=== PATIENT | female | born 1945 | race Caucasian/White ===

== ENCOUNTER 2021-05-01 17:59 | Inpatient (IN) | payer OTHER, SELFPAY ==
--- NOTE | 2021-05-01 | ECG_ITS ---
Test Reason : ALTERED MENTAL Blood Pressure : / mmHG Vent. Rate : 083 BPM Atrial Rate : 083 BPM P-R Int : 136 ms QRS Dur : 080 ms QT Int : 398 ms P-R-T Axes : 058 013 016 degrees QTc Int : 467 ms Normal sinus rhythm Nonspecific T wave abnormality Abnormal ECG No previous ECGs available Referred By: Sindi Santos Electronically Signed By:JAMES VERONICA
--- NOTE | ~2021-05-01 | CT_ITS ---
EXAMINATION: CT HEAD WITHOUT CONTRAST CLINICAL INFORMATION: Confusion. Covid positive. COMPARISON: None. TECHNIQUE: Contiguous axial imaging was performed from the skull base to vertex without intravenous contrast. This CT examination was performed using dose optimization techniques as appropriate, variously including the following: * Automated exposure control * Adjustment of mA and/or kV according to patient size (this includes techniques or standardized protocols for targeted exams where dose is matched to indication/reason for exam; i.e. extremities or head) Use of iterative reconstruction technique DLP: 631 mGy-cm. FINDINGS: There is no evidence of acute intracranial hemorrhage or territorial infarction. No abnormal mass effect or midline shift is seen. [place] to white matter differentiation is well preserved. No extra-axial fluid collections are identified. No hydrocephalus. Proportional prominence of the ventricles and sulcal spaces is consistent with moderate volume loss. Patchy periventricular and deep white matter hypoattenuation is consistent with moderate small vessel ischemic changes. The osseous structures and soft tissues are normal. Mild mucoperiosteal thickening of the paranasal sinuses. The mastoid air cells are well aerated. CT/CT head/brain wo con IMPRESSION: No acute intracranial pathology. Chronic volume loss with small vessel ischemic change.
--- NOTE | ~2021-05-01 | XR_ITS ---
EXAMINATION: XR CHEST CLINICAL INFORMATION: Shortness of breath. COMPARISON: Most recent chest radiograph dated 11/29/2018. TECHNIQUE: Frontal view of the chest was obtained. FINDINGS: Patchy bilateral airspace opacities, most prominent within the left upper lobe. Mild interstitial prominence. No pleural effusion or pneumothorax. Stable cardiomediastinal silhouette. XR/XR chest 1V IMPRESSION: Patchy bilateral airspace opacities, most prominent within the left upper lobe. Findings could represent an infectious or inflammatory process, including viral pneumonia.
[2021-05-01 18:38] VITALS: BP 140/57; PULSE 85; TEMP 37.5; O2SAT 96; BMI 24.0
--- NOTE | 2021-05-01 19:26 | ED.GENADULT ---
HPI - General Adult General Chief complaint: General Medical Stated complaint: general malaise Time Seen by Provider: 05/01/21 19:10 History of Present Illness HPI narrative: Patient is 75-year-old female found in a public park urinating on herself. Patient claims she has been coughing having upper respiratory symptoms. Denies any focal weakness. She received her coronavirus vaccine over 2 weeks ago. No vomiting. No focal weakness. Generalized malaise. No chest pain. No abdominal pain. Patient answers simple questions. Feels somewhat weak. Tired. Related Data Allergies Allergy/AdvReac Type Severity Reaction Status Date / Time Penicillins [PENICILLINS] Allergy Unknown UNKNOWN Unverified 04/15/20 15:11 aspirin Allergy Unknown Uncoded 06/30/13 00:00 PCN Allergy Unknown Uncoded 06/30/13 00:00 Review of Systems Review of Systems: No fever no chills no nausea no vomiting Positive weakness All system reviewed Yes all other systems are reviewed and are negative [facility] Social History Social History Alcohol intake: never Patient Tobacco Use Status: Never used Tobacco Advance Directives: No Advance Directives Information Provided: No Physical Exam Vital Signs: Vital Signs: Last Vital Signs Temp 99.9 F 05/01/21 23:37 Pulse 87 05/01/21 23:37 Resp 18 05/01/21 23:37 BP 164/61 H 05/01/21 23:37 Pulse Ox 95 05/01/21 23:37 Body Mass Index 24.0 Appearance: Alert. Oriented X3. No acute distress. Eyes: Pupils equal, round and reactive to light. ENT: Pharynx normal. Neck: Normal inspection. Neck supple. No lymph nodes noted. No crepitus CVS: Normal heart rate and rhythm. Pulses normal. Normal S1 and S2 Respiratory: No respiratory distress. Breath sounds normal. No Wheezing. No rales Abdomen: Soft and nontender. No rigidity. No distention. good BS x4 Skin: Skin warm and dry. Normal skin color. Normal skin turgor. Extremities: No lower extremity edema. Neurovascular intact to all extremities. No Lacerations. No Rash Neuro: Oriented X 3. No motor deficit. No sensory deficit. Moving all extermities. No slurred speech Medical Decision Making MDM Narrative Medical decision making narrative: Patient's COVID test was positive. Positive generalized malaise weakness. X-ray showed a possible pneumonia. Question secondary to COVID versus community-acquired. Antibiotic was started. Given patient is wondering altered earlier. Will admit for further evaluation and monitoring. Case discussed with the hospitalist team. Patient was not hypoxic here in emergency department. Lab Data Result diagrams: 05/01/21 20:24 05/01/21 20:24 Labs: Lab Results 05/01/21 05/01/21 05/01/21 Range/Units 20:04 20:16 20:16 WBC (4.8-10.8) X10*3/uL RBC (4.20-5.50) X10*6/uL Hgb (12.0-16.0) g/dl Hct (37-47) % MCV (80-98) fL MCH (27.0-33.0) pg MCHC (31.0-35.0) g/dl RDW (11.0-16.0) % Plt Count (160-400) X10*3/uL MPV (9.4-12.3) fL Immature Gran % (Auto) (0.0-0.4) % Neut % (Auto) (45-73) % Lymph % (Auto) (20-40) % [place] % (Auto) (2-11) % Eos % (Auto) (0-4) % Baso % (Auto) (0-2) % Lymph # (Auto) (1.2-4.9) X10*3/uL [place] # (Auto) (0.1-1.2) X10*3/uL Eos # (Auto) (0.0-0.4) X10*3/uL Baso # (Auto) (0.0-0.2) X10*3/uL Abs Immat Gran (auto) (0.00-0.03) X10*3/uL Absolute Neuts (auto) (2.0-8.3) X10*3/uL Absolute Nucleated RBC (0.0-0.012) X10*3/uL Nucleated RBC % (auto) (0.0-0.2) /100WBC Sodium (135-145) mmol/L Potassium (3.3-5.1) mmol/L Chloride (96-108) mmol/L Carbon Dioxide (22-29) mmol/L Anion Gap (12-20) BUN (9-16) mg/dL Creatinine (0.5-1.4) mg/dL Estim Creat Clear Calc Estimated GFR POC Glucose 248 H (60-115) mg/dL Random Glucose (60-115) mg/dL Lactic Acid (0.5-2.0) mmol/L Calcium (8.4-10.2) mg/dL TSH (0.32-4.0) uIU/mL Urine Color YELLOW Urine Appearance CLEAR Urine pH 6.0 (5.0-8.0) Ur Specific [place] 1.010 (1.005-1.025) Urine Protein NEG (NEG-TRACE) MG/DL Urine Glucose (UA) >=1000 H (NEG) MG/DL Urine Ketones 40 (NEG) MG/DL Urine Blood 2+ H (NEG) Urine Nitrite NEG (NEG) Ur Leukocyte Esterase NEG (NEG) Urine RBC 5-9 H (0) /HPF Urine WBC 0 (0-4) /HPF Ur Squamous Epith Cells NONE /LPF Urine Bacteria NONE /LPF Urine Mucus TRACE /LPF Coronavirus (PCR) POSITIVE A (Negative) Influenza Type A (PCR) NEGATIVE (Negative) Influenza Type B (PCR) NEGATIVE (Negative) RSV RNA Qual (PCR) NEGATIVE (Negative) 05/01/21 05/01/21 05/01/21 Range/Units 20:23 20:24 20:24 WBC 3.9 L (4.8-10.8) X10*3/uL RBC 4.37 (4.20-5.50) X10*6/uL Hgb 12.5 (12.0-16.0) g/dl Hct 35.3 L (37-47) % MCV 80.8 (80-98) fL MCH 28.6 (27.0-33.0) pg MCHC 35.4 H (31.0-35.0) g/dl RDW 12.3 (11.0-16.0) % Plt Count 178 (160-400) X10*3/uL MPV 9.7 (9.4-12.3) fL Immature Gran % (Auto) 0.3 (0.0-0.4) % Neut % (Auto) 59.3 (45-73) % Lymph % (Auto) 30.4 (20-40) % [place] % (Auto) 9.4 (2-11) % Eos % (Auto) 0.3 (0-4) % Baso % (Auto) 0.3 (0-2) % Lymph # (Auto) 1.2 (1.2-4.9) X10*3/uL [place] # (Auto) 0.4 (0.1-1.2) X10*3/uL Eos # (Auto) 0.0 (0.0-0.4) X10*3/uL Baso # (Auto) 0.0 (0.0-0.2) X10*3/uL Abs Immat Gran (auto) 0.01 (0.00-0.03) X10*3/uL Absolute Neuts (auto) 2.3 (2.0-8.3) X10*3/uL Absolute Nucleated RBC 0.000 (0.0-0.012) X10*3/uL Nucleated RBC % (auto) 0.0 (0.0-0.2) /100WBC Sodium 137 (135-145) mmol/L Potassium 2.9 L (3.3-5.1) mmol/L Chloride 98 (96-108) mmol/L Carbon Dioxide 27 (22-29) mmol/L Anion Gap 15 (12-20) BUN 6 L (9-16) mg/dL Creatinine 0.66 (0.5-1.4) mg/dL Estim Creat Clear Calc 57.6 Estimated GFR > 60 POC Glucose (60-115) mg/dL Random Glucose 257 H (60-115) mg/dL Lactic Acid 1.0 (0.5-2.0) mmol/L Calcium 9.4 (8.4-10.2) mg/dL TSH (0.32-4.0) uIU/mL Urine Color Urine Appearance Urine pH (5.0-8.0) Ur Specific [place] (1.005-1.025) Urine Protein (NEG-TRACE) MG/DL Urine Glucose (UA) (NEG) MG/DL Urine Ketones (NEG) MG/DL Urine Blood (NEG) Urine Nitrite (NEG) Ur Leukocyte Esterase (NEG) Urine RBC (0) /HPF Urine WBC (0-4) /HPF Ur Squamous Epith Cells /LPF Urine Bacteria /LPF Urine Mucus /LPF Coronavirus (PCR) (Negative) Influenza Type A (PCR) (Negative) Influenza Type B (PCR) (Negative) RSV RNA Qual (PCR) (Negative) 05/01/21 Range/Units 20:24 WBC (4.8-10.8) X10*3/uL RBC (4.20-5.50) X10*6/uL Hgb (12.0-16.0) g/dl Hct (37-47) % MCV (80-98) fL MCH (27.0-33.0) pg MCHC (31.0-35.0) g/dl RDW (11.0-16.0) % Plt Count (160-400) X10*3/uL MPV (9.4-12.3) fL Immature Gran % (Auto) (0.0-0.4) % Neut % (Auto) (45-73) % Lymph % (Auto) (20-40) % [place] % (Auto) (2-11) % Eos % (Auto) (0-4) % Baso % (Auto) (0-2) % Lymph # (Auto) (1.2-4.9) X10*3/uL [place] # (Auto) (0.1-1.2) X10*3/uL Eos # (Auto) (0.0-0.4) X10*3/uL Baso # (Auto) (0.0-0.2) X10*3/uL Abs Immat Gran (auto) (0.00-0.03) X10*3/uL Absolute Neuts (auto) (2.0-8.3) X10*3/uL Absolute Nucleated RBC (0.0-0.012) X10*3/uL Nucleated RBC % (auto) (0.0-0.2) /100WBC Sodium (135-145) mmol/L Potassium (3.3-5.1) mmol/L Chloride (96-108) mmol/L Carbon Dioxide (22-29) mmol/L Anion Gap (12-20) BUN (9-16) mg/dL Creatinine (0.5-1.4) mg/dL Estim Creat Clear Calc Estimated GFR POC Glucose (60-115) mg/dL Random Glucose (60-115) mg/dL Lactic Acid (0.5-2.0) mmol/L Calcium (8.4-10.2) mg/dL TSH 0.90 (0.32-4.0) uIU/mL Urine Color Urine Appearance Urine pH (5.0-8.0) Ur Specific [place] (1.005-1.025) Urine Protein (NEG-TRACE) MG/DL Urine Glucose (UA) (NEG) MG/DL Urine Ketones (NEG) MG/DL Urine Blood (NEG) Urine Nitrite (NEG) Ur Leukocyte Esterase (NEG) Urine RBC (0) /HPF Urine WBC (0-4) /HPF Ur Squamous Epith Cells /LPF Urine Bacteria /LPF Urine Mucus /LPF Coronavirus (PCR) (Negative) Influenza Type A (PCR) (Negative) Influenza Type B (PCR) (Negative) RSV RNA Qual (PCR) (Negative) Discharge Plan Discharge Clinical Impression: Pneumonia due to COVID-19 virus Patient Disposition: Admitted As Inpatient
[2021-05-01 20:29] LABS: Glucose, Whole Blood 248 mg/dL (60-115)
[2021-05-01 20:30] LABS: MANUAL DIFF FLAG NO
[2021-05-01 20:32] LABS: Basophils Percent Auto 0.3 % (0-2); Eosinophils Percent Auto 0.3 % (0-4); Hematocrit 35.3 % (37-47); Hemoglobin 12.5 g/dl (12.0-16.0); Imm Gran Abs Auto 0.01 X10*3/uL (0.00-0.03); Imm Gran Pct Auto 0.3 % (0.0-0.4); Lymphocytes Absolute Auto 1.2 X10*3/uL (1.2-4.9); Lymphocytes Percent Auto 30.4 % (20-40); Mean Corpuscular HGB Conc 35.4 g/dl (31.0-35.0); Mean Corpuscular Hemoglobin 28.6 pg (27.0-33.0); Mean Corpuscular Volume 80.8 fL (80-98); Mean Platelet Volume 9.7 fL (9.4-12.3); Monocytes Absolute Auto 0.4 X10*3/uL (0.1-1.2); Monocytes Percent Auto 9.4 % (2-11); Neutrophils Absolute Auto 2.3 X10*3/uL (2.0-8.3); Neutrophils Percent Auto 59.3 % (45-73); Platelet Count 178 X10*3/uL (160-400); Red Blood Count 4.37 X10*6/uL (4.20-5.50); Red Cell Distribution Width 12.3 % (11.0-16.0); White Blood Count 3.9 X10*3/uL (4.8-10.8)
[2021-05-01 20:33] LABS: Appearance Urine CLEAR; Color Urine YELLOW; Glucose Urine UA >=1000 MG/DL (NEG); Leukocyte Esterase Urine NEG (NEG); Nitrite Urine NEG (NEG); UACC Culture Trigger NO; Urine Blood 2+ (NEG); Urine Ketones 40 MG/DL (NEG); Urine Protein NEG (NEG-TRACE)
[2021-05-01 20:40] LABS: Mucus Urine TRACE /LPF; WBC Urine 0 /HPF (0-4)
[2021-05-01 21:02] LABS: Blood Urea Nitrogen 6 mg/dL (9-16); Calcium 9.4 mg/dL (8.4-10.2); Creatinine Clr Calc Pharmacy 57.6; Estimated Glomerular Filt Rate > 60; Glucose Random 257 mg/dL (60-115)
--- NOTE | 2021-05-01 21:12 | PC.NURSE ---
pt alert to name and place. she has difficulty following direction.
[2021-05-01 21:13] LABS: Anion Gap 15 (12-20); Carbon Dioxide 27 mmol/L (22-29); Chloride 98 mmol/L (96-108); Potassium 2.9 mmol/L (3.3-5.1); Sodium 137 mmol/L (135-145)
[2021-05-01 21:34] LABS: Influenza A PCR NEGATIVE (Negative); Influenza B PCR NEGATIVE (Negative); Resp Syncy Virus RNA Qual PCR NEGATIVE (Negative)
[2021-05-01 21:36] LABS: SARS COV2 PCR INHOUSE POSITIVE (Negative)
--- NOTE | 2021-05-01 23:30 | PM.IMHP ---
History of Present Illness Date of Service: 05/01/21 Chief Complaint: Confusion 75F with a past medical history of hypertension, diabetes presented to the hospital in the chief complaint of confusion. At the time of my entry patient is alert and awake. Oriented times 2-3. Per ER physician patient was found to be in the parking lot and brought her to the hospital as she was wandering in the ER. Patient noted to be mildly confused. Exam nonfocal. Patient denies any chest pain palpitations lightheadedness dizziness or shortness of breath. Denies any fever chills cough. Denies any GI or symptoms. Review of all other systems is negative except mentioned above ER course: Per ER team patient COVID-19 came back positive; patient saturating 96% on room air; chest x-ray consistent and opacities-concern for COVID pneumonia; given ceftriaxone azithromycin. Admitted to the hospital for further management PMFSH Pertinent family history: pt unable to provide information. Social History Alcohol intake: never Patient Tobacco Use Status: Never used Tobacco Advance Directives: No Advance Directives Information Provided: No Meds Allergies Allergy/AdvReac Type Severity Reaction Status Date / Time Penicillins [PENICILLINS] Allergy Unknown UNKNOWN Unverified 04/15/20 15:11 aspirin Allergy Unknown Uncoded 06/30/13 00:00 PCN Allergy Unknown Uncoded 06/30/13 00:00 Active Medications: Current Medications Azithromycin (Azithromycin 500 Mg Tablet) 500 mg PO Q24H CORA Ceftriaxone Sodium 1 gm/ (Sodium Chloride) 50 mls @ 100 mls/hr IV ONCE ONE Stop: 05/01/21 23:54 Ceftriaxone Sodium 1 gm/ (Sodium Chloride) 50 mls @ 100 mls/hr IV Q24H CORA Physical Exam Vital Signs and Narrative: Vital Signs: Last Vital Signs Temp 99.5 F 05/01/21 18:38 Pulse 85 05/01/21 18:38 BP 140/57 H 05/01/21 18:38 Pulse Ox 96 05/01/21 18:38 Body Mass Index 24.0 Results Labs CBC and Chem 7: 05/01/21 20:24 05/01/21 20:24 Labs: Laboratory Results - last 24 hr 05/01/21 05/01/21 05/01/21 20:04 20:16 20:16 MCV MCH MCHC RDW Plt Count MPV Immature Gran % (Auto) Neut % (Auto) Lymph % (Auto) [place] % (Auto) Eos % (Auto) Baso % (Auto) Lymph # (Auto) [place] # (Auto) Eos # (Auto) Baso # (Auto) Abs Immat Gran (auto) Absolute Neuts (auto) Absolute Nucleated RBC Nucleated RBC % (auto) Anion Gap Estim Creat Clear Calc Estimated GFR POC Glucose 248 H Random Glucose Lactic Acid Calcium TSH Urine Color YELLOW Urine Appearance CLEAR Urine pH 6.0 Ur Specific [place] 1.010 Urine Protein NEG Urine Glucose (UA) >=1000 H Urine Ketones 40 Urine Blood 2+ H Urine Nitrite NEG Ur Leukocyte Esterase NEG Urine RBC 5-9 H Urine WBC 0 Ur Squamous Epith Cells NONE Urine Bacteria NONE Urine Mucus TRACE Coronavirus (PCR) POSITIVE A Influenza Type A (PCR) NEGATIVE Influenza Type B (PCR) NEGATIVE RSV RNA Qual (PCR) NEGATIVE 05/01/21 05/01/21 05/01/21 20:23 20:24 20:24 MCV 80.8 MCH 28.6 MCHC 35.4 H RDW 12.3 Plt Count 178 MPV 9.7 Immature Gran % (Auto) 0.3 Neut % (Auto) 59.3 Lymph % (Auto) 30.4 [place] % (Auto) 9.4 Eos % (Auto) 0.3 Baso % (Auto) 0.3 Lymph # (Auto) 1.2 [place] # (Auto) 0.4 Eos # (Auto) 0.0 Baso # (Auto) 0.0 Abs Immat Gran (auto) 0.01 Absolute Neuts (auto) 2.3 Absolute Nucleated RBC 0.000 Nucleated RBC % (auto) 0.0 Anion Gap 15 Estim Creat Clear Calc 57.6 Estimated GFR > 60 POC Glucose Random Glucose 257 H Lactic Acid 1.0 Calcium 9.4 TSH Urine Color Urine Appearance Urine pH Ur Specific [place] Urine Protein Urine Glucose (UA) Urine Ketones Urine Blood Urine Nitrite Ur Leukocyte Esterase Urine RBC Urine WBC Ur Squamous Epith Cells Urine Bacteria Urine Mucus Coronavirus (PCR) Influenza Type A (PCR) Influenza Type B (PCR) RSV RNA Qual (PCR) 05/01/21 20:24 MCV MCH MCHC RDW Plt Count MPV Immature Gran % (Auto) Neut % (Auto) Lymph % (Auto) [place] % (Auto) Eos % (Auto) Baso % (Auto) Lymph # (Auto) [place] # (Auto) Eos # (Auto) Baso # (Auto) Abs Immat Gran (auto) Absolute Neuts (auto) Absolute Nucleated RBC Nucleated RBC % (auto) Anion Gap Estim Creat Clear Calc Estimated GFR POC Glucose Random Glucose Lactic Acid Calcium TSH 0.90 Urine Color Urine Appearance Urine pH Ur Specific [place] Urine Protein Urine Glucose (UA) Urine Ketones Urine Blood Urine Nitrite Ur Leukocyte Esterase Urine RBC Urine WBC Ur Squamous Epith Cells Urine Bacteria Urine Mucus Coronavirus (PCR) Influenza Type A (PCR) Influenza Type B (PCR) RSV RNA Qual (PCR) Imaging Radiologist's Impressions: Impressions Chest X-Ray 05/01/21 19:11 IMPRESSION: Patchy bilateral airspace opacities, most prominent within the left upper lobe. Findings could represent an infectious or inflammatory process, including viral pneumonia. Assessment and Plan (1) Pneumonia due to COVID-19 virus: Status: Acute (2) Confusion: Status: Acute 75-year-old female with a past medical history of hypertension, diabetes presented to the hospital with a chief complaint of confusion. Noted to have COVID-19 pneumonia. Confusion: Likely toxic metabolic encephalopathy. Exam nonfocal. CT head pending. Fall precautions. Nursing swallow screen. Supportive care. COVID-19 pneumonia: Patient currently saturating 96% on room air. Supplemental oxygen p.r.n.. Continue ceftriaxone and azithromycin. Id consult for further recommendations Diabetes: Insulin sliding scale.sent Hba1c; Hypertension: Amlodipine 2.5 mg. DVT prophylaxis: Lovenox Code status: Full code-presumed. Unable to reach the patient's family social care proxy. Will defer to the a.m. team to confirm the code status in the morning. Also to confirm the patient's home medications with the PCP tomorrow. Quality Stroke Does the patient have a stroke diagnosis?: No VTE Prior VTE?: No VTE Risk Level:: Medical - moderate - high VTE Device Contraindication: Treatment Not Indicated VTE Drug Contraindication: N/A - Med Ordered
[2021-05-01 23:37] VITALS: BP 164/61; PULSE 87; RESP 18; TEMP 37.7; O2SAT 95
--- NOTE | 2021-05-01 23:39 | PC.NURSE ---
pt mildly confused, pt was oob sitting in a chair putting her sneakers on and was thinking she was leaving the hospital. pt redirecte to bed weakness noted.
[2021-05-01] MEDS: cefTRIAXone sodium 1 GM in 0.9 % Sodium Chloride 50 ML IV (23:52)
[2021-05-01] MEDS: Azithromycin 500 MG TABLET PO (23:52)
--- NOTE | 2021-05-01 23:54 | PC.NURSE ---
pt takes her medications well, asking for soup, pt states she has not been eating, sandwhich given. and beverage. hgob elevated.
[2021-05-02] VITALS (8 sets, daily range): BP systolic 132–168; BP diastolic 55–75; PULSE 67–91; RESP 17–20; TEMP 36.1–37; O2SAT 94–97; BMI 23.2
--- NOTE | 2021-05-02 01:02 | PC.NURSE ---
pt moved to the covid area of the ed, room 3. report given to venus black.
--- NOTE | 2021-05-02 01:55 | PC.NURSE ---
Pt noted to be getting OOB, stated she needed to go to the bathroom, in fact had already had large BM on stretcher. Sheets changed, bed cleaned. Pt w/ copious amount of stool on legs and perineum, cleaned and new gown provided. Pt stated I need to urinate too , this RN stated we could go across the [place] to the bathroom, pt then proceeded to urinate on floor where she was standing. Pt back in bed, attached to monitor, lights dimmed. Educated pt that in the future we can escort her to the bathroom when she needs to go, unclear if verbalizing understanding.
--- NOTE | 2021-05-02 06:27 | PC.NURSE ---
patient incontinent of urine, one assist to bathroom. patient changed into [facility]
[2021-05-02 06:39] LABS: MANUAL DIFF FLAG NO
[2021-05-02 06:55] LABS: Basophils Percent Auto 0.2 % (0-2); Eosinophils Percent Auto 0.2 % (0-4); Hematocrit 38.6 % (37-47); Hemoglobin 13.4 g/dl (12.0-16.0); Hemoglobin A1c % > 14.0 %; Imm Gran Abs Auto 0.02 X10*3/uL (0.00-0.03); Imm Gran Pct Auto 0.4 % (0.0-0.4); Lymphocytes Absolute Auto 1.3 X10*3/uL (1.2-4.9); Lymphocytes Percent Auto 23.8 % (20-40); Mean Corpuscular HGB Conc 34.7 g/dl (31.0-35.0); Mean Corpuscular Hemoglobin 28.2 pg (27.0-33.0); Mean Corpuscular Volume 81.3 fL (80-98); Monocytes Absolute Auto 0.4 X10*3/uL (0.1-1.2); Monocytes Percent Auto 7.7 % (2-11); Neutrophils Absolute Auto 3.6 X10*3/uL (2.0-8.3); Neutrophils Percent Auto 67.7 % (45-73); Platelet Count 202 X10*3/uL (160-400); Red Blood Count 4.75 X10*6/uL (4.20-5.50); Red Cell Distribution Width 12.2 % (11.0-16.0); White Blood Count 5.3 X10*3/uL (4.8-10.8)
[2021-05-02 06:57] LABS: Magnesium 1.7 mg/dL (1.6-2.6)
[2021-05-02 07:02] LABS: Anion Gap 18 (12-20); Blood Urea Nitrogen 7 mg/dL (9-16); Calcium 9.1 mg/dL (8.4-10.2); Carbon Dioxide 25 mmol/L (22-29); Chloride 98 mmol/L (96-108); Creatinine Clr Calc Pharmacy 50.7; Estimated Glomerular Filt Rate > 60; Glucose Random 292 mg/dL (60-115); Potassium 2.6 mmol/L (3.3-5.1); Sodium 138 mmol/L (135-145)
--- NOTE | 2021-05-02 07:55 | PC.NURSE ---
report to kinza on c
[2021-05-02 07:57] LABS: Glucose, Whole Blood 258 mg/dL (60-115)
[2021-05-02 09:01] LABS: Glucose, Whole Blood 343 mg/dL (60-115)
[2021-05-02] MEDS: amLODIPine Besylate 2.5 MG TABLET PO (09:12)
[2021-05-02] MEDS: 0.9 % Sodium Chloride Flush 3 ML SYRINGE IVFLUSH ×3 (09:13→21:18)
[2021-05-02] MEDS: Potassium Chloride Packet 20 MEQ PACKET 40 MEQ PO ×2 (09:13→21:16)
[2021-05-02] MEDS: Insulin Lispro 100 UNIT/ML 3 ML VIAL SUBCUT ×4 (09:13→21:17)
--- NOTE | 2021-05-02 09:17 | MHC.CM.PN ---
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 She has new [facility] insurance. She lives alone. She uses a cane or walker. She is independent with sponge bath. DP home with services from [facility] via [facility] transport. She does not have a HCP. Pt was educated on HCP. She declined the offer to document a HCP. She has family in the area. She does not see them frequently. She receives assistance from people from her advent. CM will follow to assess for a change in discharge needs.
[2021-05-02 11:24] LABS: Glucose, Whole Blood 260 mg/dL (60-115)
[2021-05-02] MEDS: dexAMETHasone 6 MG TABLET PO (12:15)
[2021-05-02 16:23] LABS: Glucose, Whole Blood 253 mg/dL (60-115)
--- NOTE | 2021-05-02 18:45 | HO.PM.IMPN ---
Subjective Subjective Date of Service: 05/02/21 Interval History: late entry note from 05/02 Seen in f/u for covid, confusion. She is a bit confused but assymptomatic from covid Review of Systems confused no sob Physical Exam Vital Signs: Vital Signs: Last Vital Signs Selected Entries 05/01/21 18:38 Temperature 99.5 F Pulse Rate 85 Blood Pressure 140/57 H Pulse Oximetry 96 Oxygen Delivery Me thod Room Air Body Mass Index 23.2 General: AO X1, no acute distressResp: CTA bilateral CVS: S1,S2,RRR GI: +BS, NT, no distention Skin: No rash Neuro: motor grossly intact Psych: appropriate affect Objective Data Active Medications Acetaminophen (Acetaminophen 325 Mg Tablet) 650 mg PO Q6H PRN PRN Reason: Pain, Mild (Pain Scale 1-3) Last Admin: 05/03/21 14:00 Dose: 650 mg Documented by: SUMA Amlodipine Besylate (Amlodipine Besylate 5 Mg Tablet) 5 mg PO DAILY [facility]; Protocol Azithromycin (Azithromycin 500 Mg Tablet) 500 mg PO Q24H [facility] Last Admin: 05/02/21 21:16 Dose: 500 mg Documented by: ZACHARY Dexamethasone (Dexamethasone 6 Mg Tablet) 6 mg PO DAILY [facility] Last Admin: 05/03/21 08:03 Dose: 6 mg Documented by: SUMA Dextrose (Dextrose 50 % 25 Gm/50 Ml Vial) 25 gm IVPUSH Q15M PRN; Protocol PRN Reason: per Hypoglycemia Standing Ord. Enoxaparin Sodium (Enoxaparin Sodium 40 Mg/0.4 Ml Syringe) 40 mg SUBCUT Q24H [facility] Last Admin: 05/02/21 22:30 Dose: 40 mg Documented by: ZACHARY Famotidine (Famotidine 20 Mg Tablet) 20 mg PO BID [facility] Glucose (Glucose Gel 15 Gm Gel..Gram.) 15 gm PO Q15M PRN; Protocol PRN Reason: per Hypoglycemia Standing Ord. Influenza Virus Vaccine (Flu Vacc [id number](6mos Up)/Pf 0.5 Ml Syringe) 0.5 ml IM .ONCE ONE Stop: 05/03/21 18:42 Insulin Human Lispro (Insulin Lispro 100 Unit/Ml 3 Ml Vial) 0 unit SUBCUT QIDACHS [facility]; Protocol Last Admin: 05/03/21 11:46 Dose: 12 unit Documented by: SUMA Melatonin (Melatonin 3 Mg Tablet) 6 mg PO BEDTIME PRN PRN Reason: Insomnia Senna (Sennosides 8.6 Mg Tablet) 17.2 mg PO BEDTIME PRN PRN Reason: Constipation Sodium Chloride (0.9 % Sodium Chloride Flush 3 Ml Syringe) 3 ml IVFLUSH QSHIFT CORA Last Admin: 05/03/21 08:03 Dose: 3 ml Documented by: SUMA Labs CBC & Chem 7: 05/02/21 06:27 05/03/21 09:57 Labs: Laboratory Results - last 24 hr 05/02/21 05/02/21 05/02/21 16:19 20:04 21:09 Anion Gap Estim Creat Clear Calc Estimated GFR POC Glucose 253 H 320 H 307 H Random Glucose Calcium Magnesium Procalcitonin 05/03/21 05/03/21 05/03/21 07:06 09:57 09:57 Anion Gap 15 Estim Creat Clear Calc 47.8 Estimated GFR > 60 POC Glucose 254 H Random Glucose 384 H* Calcium 10.0 D Magnesium 1.9 Procalcitonin 0.08 05/03/21 11:05 Anion Gap Estim Creat Clear Calc Estimated GFR POC Glucose 374 H* Random Glucose Calcium Magnesium Procalcitonin Microbiology Microbiology Results: Microbiology 05/01/21 21:04 Blood Culture - Preliminary Blood - Venous No growth after 24 hours. 05/01/21 20:24 Blood Culture - Preliminary Blood - Venous No growth after 24 hours. Assessment and Plan (1) Pneumonia due to COVID-19 virus: Status: Acute (2) Confusion: Status: Acute Assessment and Plan: 75-year-old female with a past medical history of hypertension, diabetes presented to the hospital with a chief complaint of confusion.? Noted to have COVID-19 pneumonia. Confusion:? Probably has underlying cognitive impairment COVID-19 pneumonia:? assymptimatic, give Dexamatheasone Diabetes:? Insulin sliding scale.sent Hba1c; Hypertension:? Amlodipine 2.5 mg. late entry note from 05/02 Quality Stroke Does the patient have a stroke diagnosis?: No VTE Prior VTE?: No VTE Risk Level:: Medical - moderate - high VTE Device Contraindication: Treatment Not Indicated VTE Drug Contraindication: N/A - Med Ordered
[2021-05-02 20:09] LABS: Glucose, Whole Blood 320 mg/dL (60-115)
[2021-05-02 21:13] LABS: Glucose, Whole Blood 307 mg/dL (60-115)
[2021-05-02] MEDS: Azithromycin 500 MG TABLET PO (21:16)
[2021-05-02] MEDS: Enoxaparin Sodium 40 MG/0.4 ML SYRINGE SUBCUT (22:30)
[2021-05-03] VITALS (7 sets, daily range): BP systolic 106–175; BP diastolic 51–76; PULSE 61–80; RESP 18–20; TEMP 36.1–36.6; O2SAT 96–98
[2021-05-03 07:17] LABS: Glucose, Whole Blood 254 mg/dL (60-115)
--- NOTE | 2021-05-03 07:29 | PC.NURSE ---
21:00- Pt presented as lethargic, struggled to open eyes on command with more difficulty opening left eye. Possible facial right side droop. Would not smile when asked. Weakness in upper extremities. Able to sip water without aspiration. Vital signs stable. Hospitalist Dr Branham assessed patient. Eventually less lethargic upon assessment and able to confirm and name but not place or situation or time. Pt able to smile and fully open eyes on command pupils PERRLA. Able to swallow PO meds in apple sauce. Will continue to monitor and report.
[2021-05-03] MEDS: Insulin Lispro 100 UNIT/ML 3 ML VIAL SUBCUT ×5 (08:02→21:13)
[2021-05-03] MEDS: amLODIPine Besylate 2.5 MG TABLET PO (08:03)
[2021-05-03] MEDS: dexAMETHasone 6 MG TABLET PO (08:03)
[2021-05-03] MEDS: 0.9 % Sodium Chloride Flush 3 ML SYRINGE IVFLUSH ×3 (08:03→21:15)
[2021-05-03] MEDS: Potassium Chloride Packet 20 MEQ PACKET 40 MEQ PO (09:12)
[2021-05-03 10:49] LABS: Anion Gap 15 (12-20); Blood Urea Nitrogen 19 mg/dL (9-16); Carbon Dioxide 26 mmol/L (22-29); Chloride 103 mmol/L (96-108); Creatinine Clr Calc Pharmacy 47.8; Estimated Glomerular Filt Rate > 60; Glucose Random 384 mg/dL (60-115); Magnesium 1.9 mg/dL (1.6-2.6); Potassium 3.4 mmol/L (3.3-5.1); Sodium 141 mmol/L (135-145)
[2021-05-03 11:10] LABS: Glucose, Whole Blood 374 mg/dL (60-115)
[2021-05-03 11:33] LABS: Procalcitonin 0.08 ng/mL
--- NOTE | 2021-05-03 13:31 | P.PNIM_ITS ---
Subjective Subjective Date of Service: 05/03/21 Interval History: confusion, hypokalemia , covid infection Review of Systems Patient is still somewhat confused but knows her name and knows that she is in the hospital Could able to answer few simple questions-denies any chest pain or shortness of breath has some dry cough further lu no new event overnight. Physical Exam Vital Signs: Vital Signs: Last Vital Signs Temp 97.3 F 05/03/21 11:14 Pulse 72 05/03/21 11:14 Resp 18 05/03/21 11:14 BP 155/69 H 05/03/21 11:14 Pulse Ox 98 05/03/21 11:14 Body Mass Index 23.2 Physical exam: Appearance: Aox2, not in distress.? Eyes: Pupils equal, round and reactive to light.? Sclera nonicteric.? ENT: Moist mucous membranes. cvs: rrr, [id number] , no murmur res: clear to auscultation ,no rhonchii or wheezing abd: no rebound or guarding ,nt, bs present. ext pulses present , no cyanosis . neuro: axo2 , moves all extermities . Objective Data Active Medications Acetaminophen (Acetaminophen 325 Mg Tablet) 650 mg PO Q6H PRN PRN Reason: Pain, Mild (Pain Scale 1-3) Amlodipine Besylate (Amlodipine Besylate 5 Mg Tablet) 5 mg PO DAILY [facility]; Protocol Azithromycin (Azithromycin 500 Mg Tablet) 500 mg PO Q24H [facility] Last Admin: 05/02/21 21:16 Dose: 500 mg Documented by: ALYSELN Dexamethasone (Dexamethasone 6 Mg Tablet) 6 mg PO DAILY [facility] Last Admin: 05/03/21 08:03 Dose: 6 mg Documented by: BROB Dextrose (Dextrose 50 % 25 Gm/50 Ml Vial) 25 gm IVPUSH Q15M PRN; Protocol PRN Reason: per Hypoglycemia Standing Ord. Enoxaparin Sodium (Enoxaparin Sodium 40 Mg/0.4 Ml Syringe) 40 mg SUBCUT Q24H [facility] Last Admin: 05/02/21 22:30 Dose: 40 mg Documented by: ALYSELN Glucose (Glucose Gel 15 Gm Gel..Gram.) 15 gm PO Q15M PRN; Protocol PRN Reason: per Hypoglycemia Standing Ord. Influenza Virus Vaccine (Flu Vacc [id number](6mos Up)/Pf 0.5 Ml Syringe) 0.5 ml IM .ONCE ONE Stop: 05/03/21 18:42 Insulin Human Lispro (Insulin Lispro 100 Unit/Ml 3 Ml Vial) 0 unit SUBCUT QIDACHS [facility]; Protocol Last Admin: 05/03/21 11:46 Dose: 12 unit Documented by: SUMA Melatonin (Melatonin 3 Mg Tablet) 6 mg PO BEDTIME PRN PRN Reason: Insomnia Senna (Sennosides 8.6 Mg Tablet) 17.2 mg PO BEDTIME PRN PRN Reason: Constipation Sodium Chloride (0.9 % Sodium Chloride Flush 3 Ml Syringe) 3 ml IVFLUSH [facility] Last Admin: 05/03/21 08:03 Dose: 3 ml Documented by: SUMA Labs CBC & Chem 7: 05/02/21 06:27 05/03/21 09:57 Labs: Laboratory Results - last 24 hr 05/02/21 05/02/21 05/02/21 16:19 20:04 21:09 Anion Gap Estim Creat Clear Calc Estimated GFR POC Glucose 253 H 320 H 307 H Random Glucose Calcium Magnesium Procalcitonin 05/03/21 05/03/21 05/03/21 07:06 09:57 09:57 Anion Gap 15 Estim Creat Clear Calc 47.8 Estimated GFR > 60 POC Glucose 254 H Random Glucose 384 H* Calcium 10.0 D Magnesium 1.9 Procalcitonin 0.08 05/03/21 11:05 Anion Gap Estim Creat Clear Calc Estimated GFR POC Glucose 374 H* Random Glucose Calcium Magnesium Procalcitonin Microbiology Microbiology Results: Microbiology 05/01/21 21:04 Blood Culture - Preliminary Blood - Venous No growth after 24 hours. 05/01/21 20:24 Blood Culture - Preliminary Blood - Venous No growth after 24 hours. Assessment and Plan (1) Confusion: Status: Acute (2) Pneumonia due to COVID-19 virus: Status: Acute (3) Hypokalemia: Status: Acute Assessment and Plan: ? ? 75-year-old female with a past medical history of hypertension, diabetes presented to the hospital with a chief complaint of confusion.? Noted to have COVID-19 pneumonia. 1. Likely toxic metabolic encephalopathy multifactorial hypokalemia , poor oral intake ,?unclear baseline : seems slightly better.? Exam nonfocal.? CT head neg.? Fall precautions will check with family also about the basleine. Hypokalemia repleted and resolved, given another dose of potassium this morning. 2. probable COVID-19 pneumonia:? Patient currently saturating 96% on room air.? Supplemental oxygen p.r.n.. procalcitonin low dc antibiotics - ceftriaxone and azithromycin. Id consult for further recommendations 3.Diabetes:? Uncontrolled Check Hba1c; Fingersticks are uncontrolled in 200-300 range, adjusted sliding scale coverage. 4.Hypertension:? Amlodipine 2.5 mg. Patient was not taking her home medications from long time as per my review with Pharmacy, does not seems to be managing well at home, lives the lives alone, unclear baseline mental status ?memory issues PT evaluation added. DVT prophylaxis:? Lovenox Quality Stroke Does the patient have a stroke diagnosis?: No VTE Prior VTE?: No VTE Risk Level:: Medical - moderate - high VTE Device Contraindication: Treatment Not Indicated VTE Drug Contraindication: N/A - Med Ordered
[2021-05-03] MEDS: Acetaminophen 325 MG TABLET 650 MG PO (14:00)
--- NOTE | 2021-05-03 14:03 | MHC.CDI.CONC ---
CDI Concurrent Query Documentation Clarification: PHYSICIAN'S DOCUMENTATION REQUEST Date of Query: 05/03/21 1405 Patient Name: Rossy Tate Admit Date: 05/01/21 Dear Doctor, A review of the medical record indicates additional documentation may be needed. Please review below and update the documentation accordingly. Clinical Indicators: The following diagnoses or signs and symptoms were noted in the patient record: Risk Factors/Clinical Indicators/Treatments Potassium 2.9 Treated with Klor-Con Based on the above, could you clarify in the Progress Notes the appropriate diagnosis, if significant, that supports the above abnormalities and additional evaluation, monitoring, and/or treatment rendered: Hypokalemia No Hypokalemia Other (please specify) Unable to determine Use of terms such as suspected, likely, concern for, or probable (associated with a specific diagnosis that is being evaluated, monitored, or treated as if it exists) are acceptable and can be coded in the inpatient setting, when documented at the time of discharge. Thank you, Yanet López RN Extension: [phone] Please use your independent medical judgment in providing your response. THIS QUERY IS PART OF THE PERMANENT MEDICAL RECORD Provider Response: Other Other Diagnosis: hypokalemia
--- NOTE | 2021-05-03 14:24 | MHC.CM.PN ---
FEMALE 75 DX COVID. Met with patient in her room. Provided information RE: HCP. She chose her son Magnolia Medrano [phone]. The HCP was documented and scanned into EMR. Thru an sports therapist the Pts contact Maryanne Mckeon was called. Maryanne reported that she checks in on the patient weekly. She reports that the patient has 4 children.The patient is forgetful at times. Attempted to reach the patients son Magnolia, KRISTINA left. CM will follow.
[2021-05-03] MEDS: Famotidine 20 MG TABLET PO ×2 (15:45→21:08)
[2021-05-03 16:12] LABS: Glucose, Whole Blood 301 mg/dL (60-115)
[2021-05-03 20:03] LABS: Glucose, Whole Blood 442 mg/dL (60-115)
[2021-05-03] MEDS: Azithromycin 500 MG TABLET PO (21:08)
[2021-05-03] MEDS: Enoxaparin Sodium 40 MG/0.4 ML SYRINGE SUBCUT (21:09)
--- NOTE | 2021-05-03 21:29 | P.CNID_ITS ---
History of Present Illness Data of Consult Service Date: 05/02/21 Requesting physician: Shane Bai Primary Care Provider: Desmond Campbell MD [facility] Reason for consult: COVID She presents to hospital with shortness of breath for a week He has no fever or chills. No one else is ill She is COVID positive Review of Systems Review of Systems: Yes all other systems are reviewed and are negative PMFSH Family History Family history: reviewed and not pertinent Social History Social History Household Members: Other Household Members Other:: alone Housing: Apartment Do you presently have visiting nurse or other home services: No Alcohol intake: never Patient Tobacco Use Status: Never used Tobacco Use of substances other than those prescribed or required for medical reasons: No Currently Displaying Signs/Symptoms of Drug Intoxication Withdrawal: No Have you been hit, kicked, punched, or otherwise hurt by someone within the past year? If so, by whom?: No Do you feel safe in your current relationship?: Yes Is there a partner from a previous relationship who is making you feel unsafe now?: No Are you made to feel afraid or neglected: No Advance Directives: No Advance Directives Information Provided: No Do you have thoughts of harming others: None Do you have a plan to hurt others: No Plan Recently lost weight without trying: Unsure How much weight loss: Unsure Eating poorly because of decreased appetite: No Nutrition screen score: 4 Nutrition Risks: No Nutritional Risk Patient : No : No Poor oral hygiene: No service: No Current occupational status: unemployed Meds Allergies Allergy/AdvReac Type Severity Reaction Status Date / Time Penicillins [PENICILLINS] Allergy Unknown UNKNOWN Unverified 04/15/20 15:11 aspirin Allergy Unknown Uncoded 06/30/13 00:00 PCN Allergy Unknown Uncoded 06/30/13 00:00 Active Medications: Current Medications Acetaminophen (Acetaminophen 325 Mg Tablet) 650 mg PO Q6H PRN PRN Reason: Pain, Mild (Pain Scale 1-3) Last Admin: 05/03/21 14:00 Dose: 650 mg Documented by: Amlodipine Besylate (Amlodipine Besylate 5 Mg Tablet) 5 mg PO DAILY [facility]; Protocol Azithromycin (Azithromycin 500 Mg Tablet) 500 mg PO Q24H [facility] Last Admin: 05/03/21 21:08 Dose: 500 mg Documented by: Dexamethasone (Dexamethasone 6 Mg Tablet) 6 mg PO DAILY [facility] Last Admin: 05/03/21 08:03 Dose: 6 mg Documented by: Dextrose (Dextrose 50 % 25 Gm/50 Ml Vial) 25 gm IVPUSH Q15M PRN; Protocol PRN Reason: per Hypoglycemia Standing Ord. Enoxaparin Sodium (Enoxaparin Sodium 40 Mg/0.4 Ml Syringe) 40 mg SUBCUT Q24H [facility] Last Admin: 05/03/21 21:09 Dose: 40 mg Documented by: Famotidine (Famotidine 20 Mg Tablet) 20 mg PO BID [facility] Last Admin: 05/03/21 21:08 Dose: 20 mg Documented by: Glucose (Glucose Gel 15 Gm Gel..Gram.) 15 gm PO Q15M PRN; Protocol PRN Reason: per Hypoglycemia Standing Ord. Insulin Human Lispro (Insulin Lispro 100 Unit/Ml 3 Ml Vial) 0 unit SUBCUT QIDACHS [facility]; Protocol Last Admin: 05/03/21 21:08 Dose: 12 unit Documented by: Melatonin (Melatonin 3 Mg Tablet) 6 mg PO BEDTIME PRN PRN Reason: Insomnia Senna (Sennosides 8.6 Mg Tablet) 17.2 mg PO BEDTIME PRN PRN Reason: Constipation Sodium Chloride (0.9 % Sodium Chloride Flush 3 Ml Syringe) 3 ml IVFLUSH QSHIFT [facility] Last Admin: 05/03/21 21:15 Dose: 3 ml Documented by: Physical Exam Vital Signs: Vital Signs: Last Vital Signs Temp 97.1 F 05/03/21 19:14 Pulse 80 05/03/21 19:14 Resp 20 05/03/21 19:14 BP 106/51 L 05/03/21 19:14 Pulse Ox 96 05/03/21 19:14 Body Mass Index 23.2 Const: General: cooperative HENMT: Head: Yes normal to inspection Mouth: Normal oral and palatal mucosa present Eyes: General: appearance normal, both eyes and all related structures Resp: Effort & Inspection: normal respiratory effort Cardio: Rate: regular rate Rhythm: regular rhythm GI: Inspection: Yes normal to inspection Extrem: General: Yes normal to inspection Results Labs CBC & Chem 7: 05/02/21 06:27 05/03/21 09:57 Labs: BMP 05/03/21 09:57 Sodium 141 Potassium 3.4 D Chloride 103 Carbon Dioxide 26 BUN 19 H D Creatinine 0.73 Calcium 10.0 D Microbiology Microbiology Results: Microbiology 05/01/21 21:04 Blood - Venous Blood Culture - Preliminary No growth after 24 hours. 05/01/21 20:24 Blood - Venous Blood Culture - Preliminary No growth after 24 hours. Assessment and Plan (1) Pneumonia due to COVID-19 virus: Status: Acute She has had symptoms for last week She has no productive phlegm Suggest May use Dexamethasone Would hold Remdesivir since on room air
[2021-05-03] MEDS: Melatonin 3 MG TABLET 6 MG PO (22:38)
[2021-05-04] VITALS (7 sets, daily range): BP systolic 132–148; BP diastolic 51–66; PULSE 60–80; RESP 18–20; TEMP 36.4–37; O2SAT 93–97
[2021-05-04 07:57] LABS: Glucose, Whole Blood 256 mg/dL (60-115)
[2021-05-04] MEDS: dexAMETHasone 6 MG TABLET PO (08:41)
[2021-05-04] MEDS: Azithromycin 250 MG TABLET PO (08:41)
[2021-05-04] MEDS: Famotidine 20 MG TABLET PO ×2 (08:41→21:23)
[2021-05-04] MEDS: Insulin Glargine,Hum.rec.anlog 100 UNIT/ML 10 ML VIAL 10 UNIT SUBCUT (08:41)
[2021-05-04] MEDS: amLODIPine Besylate 5 MG TABLET PO (08:41)
[2021-05-04] MEDS: Insulin Lispro 100 UNIT/ML 3 ML VIAL SUBCUT ×4 (08:42→21:25)
[2021-05-04] MEDS: 0.9 % Sodium Chloride Flush 3 ML SYRINGE IVFLUSH ×2 (08:42→16:40)
[2021-05-04 11:37] LABS: Glucose, Whole Blood 338 mg/dL (60-115)
--- NOTE | 2021-05-04 14:28 | MHC.CM.PN ---
IMM 05/02/21 Female 75 DX Covid Patient is discharged today pending authorization from [facility]. CM will follow.
[2021-05-04 16:13] LABS: Glucose, Whole Blood 288 mg/dL (60-115)
--- NOTE | 2021-05-04 17:02 | P.PNIM_ITS ---
Subjective Subjective Date of Service: 05/04/21 Interval History: COVID pneumonia, diabetes with hyperglycemia Review of Systems Patient mental status lu seems improving-seems near her baseline after discussion with the family. Denies any shortness of breath or abdominal pain or fever chills or chest pain. Physical Exam Vital Signs: Vital Signs: Last Vital Signs Temp 98.4 F 05/04/21 15:15 Pulse 72 05/04/21 15:15 Resp 20 05/04/21 15:15 BP 132/66 05/04/21 15:15 Pulse Ox 93 05/04/21 15:15 Body Mass Index 23.2 Appearance: Aox2, not in distress.? Eyes: Pupils equal, round and reactive to light.? Sclera nonicteric.? ENT: Moist mucous membranes. cvs: rrr, [id number] , no murmur res: clear to auscultation ,no rhonchii or wheezing abd: no rebound or guarding ,nt, bs present. ext pulses present , no cyanosis . neuro: axo2 , moves all extermities? Objective Data Active Medications Acetaminophen (Acetaminophen 325 Mg Tablet) 650 mg PO Q6H PRN PRN Reason: Pain, Mild (Pain Scale 1-3) Last Admin: 05/03/21 14:00 Dose: 650 mg Documented by: BRONils Amlodipine Besylate (Amlodipine Besylate 5 Mg Tablet) 5 mg PO DAILY [facility]; Protocol Last Admin: 05/04/21 08:41 Dose: 5 mg Documented by: NATALIIA Azithromycin (Azithromycin 250 Mg Tablet) 250 mg PO Q24H [facility] Last Admin: 05/04/21 08:41 Dose: 250 mg Documented by: NATALIIA Dexamethasone (Dexamethasone 6 Mg Tablet) 6 mg PO DAILY [facility] Last Admin: 05/04/21 08:41 Dose: 6 mg Documented by: NATALIIA Dextrose (Dextrose 50 % 25 Gm/50 Ml Vial) 25 gm IVPUSH Q15M PRN; Protocol PRN Reason: per Hypoglycemia Standing Ord. Enoxaparin Sodium (Enoxaparin Sodium 40 Mg/0.4 Ml Syringe) 40 mg SUBCUT Q24H [facility] Last Admin: 05/03/21 21:09 Dose: 40 mg Documented by: STELLA Famotidine (Famotidine 20 Mg Tablet) 20 mg PO BID [facility] Last Admin: 05/04/21 08:41 Dose: 20 mg Documented by: NATALIIA Glucose (Glucose Gel 15 Gm Gel..Gram.) 15 gm PO Q15M PRN; Protocol PRN Reason: per Hypoglycemia Standing Ord. Insulin Glargine (Insulin Glargine,Hum.Rec.Anlog 100 Unit/Ml 10 Ml Vial) 10 unit SUBCUT DAILY [facility] Last Admin: 05/04/21 08:41 Dose: 10 unit Documented by: NATALIIA Insulin Human Lispro (Insulin Lispro 100 Unit/Ml 3 Ml Vial) 0 unit SUBCUT QIDACHS [facility]; Protocol Last Admin: 05/04/21 16:40 Dose: 6 unit Documented by: COURTNEY Melatonin (Melatonin 3 Mg Tablet) 6 mg PO BEDTIME PRN PRN Reason: Insomnia Last Admin: 05/03/21 22:38 Dose: 6 mg Documented by: STELLA Senna (Sennosides 8.6 Mg Tablet) 17.2 mg PO BEDTIME PRN PRN Reason: Constipation Sodium Chloride (0.9 % Sodium Chloride Flush 3 Ml Syringe) 3 ml IVFLUSH QSHIFT [facility] Last Admin: 05/04/21 16:40 Dose: 3 ml Documented by: COURTNEY Labs CBC & Chem 7: 05/02/21 06:27 05/03/21 09:57 Labs: Laboratory Results - last 24 hr 05/03/21 05/04/21 05/04/21 19:57 07:40 11:26 POC Glucose 442 H* 256 H 338 H 05/04/21 16:09 POC Glucose 288 H Microbiology Microbiology Results: Microbiology 05/01/21 21:04 Blood Culture - Preliminary Blood - Venous No growth after 48 hours. 05/01/21 20:24 Blood Culture - Preliminary Blood - Venous No growth after 48 hours. Assessment and Plan (1) Confusion: Status: Acute (2) Pneumonia due to COVID-19 virus: Status: Acute Assessment and Plan: ?75-year-old female with a past medical history of hypertension, diabetes presented to the hospital with a chief complaint of confusion.? Noted to have COVID-19 pneumonia. 1. Likely toxic metabolic encephalopathy multifactorial hypokalemia , poor oral intake ,?unclear? baseline : seems slightly better.? Exam nonfocal.? CT head neg.? Fall precautions will? check with family also about the basleine. Hypokalemia repleted and resolved, given another dose of potassium this morning. 2. probable COVID-19 pneumonia:? Patient currently saturating 96% on room air.? Supplemental oxygen p.r.n.. procalcitonin low dc antibiotics - ceftriaxone and azithromycin. Id consult for further recommendations 3.Diabetes:? Uncontrolled Check Hba1c>14. Fingersticks are uncontrolled in 200-300 range, adjusted sliding scale coverage. 4.Hypertension:? Amlodipine 2.5 mg. Patient was not taking her home medications from long time as per my review with Pharmacy, does not seems to be managing well at home, lives? the lives alone, unclear baseline mental status ?memory issues PT evaluation added. DVT prophylaxis:? JellyCloud Stroke Does the patient have a stroke diagnosis?: No VTE Prior VTE?: No VTE Risk Level:: Medical - moderate - high VTE Device Contraindication: Treatment Not Indicated VTE Drug Contraindication: N/A - Med Ordered
[2021-05-04] MEDS: metFORMIN HCl 500 MG TABLET PO (18:43)
[2021-05-04 20:23] LABS: Glucose, Whole Blood 267 mg/dL (60-115)
[2021-05-04] MEDS: Melatonin 3 MG TABLET 6 MG PO (21:23)
[2021-05-04] MEDS: Enoxaparin Sodium 40 MG/0.4 ML SYRINGE SUBCUT (21:27)
[2021-05-05] MEDS: 0.9 % Sodium Chloride Flush 3 ML SYRINGE IVFLUSH ×2 (01:16→07:48)
[2021-05-05 03:45] VITALS: BP 146/64; PULSE 59; RESP 18; TEMP 36.6; O2SAT 94
[2021-05-05 07:18] LABS: Glucose, Whole Blood 189 mg/dL (60-115)
[2021-05-05] MEDS: Insulin Glargine,Hum.rec.anlog 100 UNIT/ML 10 ML VIAL SUBCUT (07:46)
[2021-05-05] MEDS: Insulin Lispro 100 UNIT/ML 3 ML VIAL SUBCUT ×3 (07:46→16:33)
[2021-05-05 07:47] VITALS: BP 146/64; PULSE 59
[2021-05-05] MEDS: amLODIPine Besylate 5 MG TABLET PO (07:47)
[2021-05-05] MEDS: metFORMIN HCl 500 MG TABLET PO ×2 (07:47→16:33)
[2021-05-05] MEDS: Azithromycin 250 MG TABLET PO (07:47)
[2021-05-05 07:48] VITALS: BP 154/59; PULSE 61; RESP 18; TEMP 36.2; O2SAT 94
[2021-05-05] MEDS: Famotidine 20 MG TABLET PO (07:48)
[2021-05-05] MEDS: dexAMETHasone 6 MG TABLET PO (07:48)
[2021-05-05 11:03] LABS: Glucose, Whole Blood 303 mg/dL (60-115)
[2021-05-05 11:51] VITALS: BP 154/59; BP 156/79; PULSE 61; PULSE 81; RESP 18; TEMP 36.2; O2SAT 94; O2SAT 96
--- NOTE | 2021-05-05 12:09 | HO.PM.IMPN ---
Subjective Subjective Date of Service: 05/05/21 Interval History: COVID pneumonia, diabetes with hyperglycemia Review of Systems Not hypoxic, denies any chest pain or shortness of breath. Mental status seems to be near baseline Physical Exam Vital Signs: Vital Signs: Last Vital Signs Temp 97.1 F 05/05/21 11:51 Pulse 61 05/05/21 11:51 Resp 18 05/05/21 11:51 BP 154/59 H 05/05/21 11:51 Pulse Ox 94 05/05/21 11:51 Body Mass Index 23.2 Appearance: Aox2, not in distress.? Eyes: Pupils equal, round and reactive to light.? Sclera nonicteric.? ENT: Moist mucous membranes. cvs: rrr, [id number] , no murmur res: clear to auscultation ,no rhonchii or wheezing abd: no rebound or guarding ,nt, bs present. ext pulses present , no cyanosis . neuro: axo2 , moves all extermities? Objective Data Active Medications Acetaminophen (Acetaminophen 325 Mg Tablet) 650 mg PO Q6H PRN PRN Reason: Pain, Mild (Pain Scale 1-3) Last Admin: 05/03/21 14:00 Dose: 650 mg Documented by: BRONils Amlodipine Besylate (Amlodipine Besylate 5 Mg Tablet) 5 mg PO DAILY [facility]; Protocol Last Admin: 05/05/21 07:47 Dose: 5 mg Documented by: COURTNEY Azithromycin (Azithromycin 250 Mg Tablet) 250 mg PO Q24H [facility] Last Admin: 05/05/21 07:47 Dose: 250 mg Documented by: COURTNEY Dexamethasone (Dexamethasone 6 Mg Tablet) 6 mg PO DAILY [facility] Last Admin: 05/05/21 07:48 Dose: 6 mg Documented by: COURTNEY Dextrose (Dextrose 50 % 25 Gm/50 Ml Vial) 25 gm IVPUSH Q15M PRN; Protocol PRN Reason: per Hypoglycemia Standing Ord. Enoxaparin Sodium (Enoxaparin Sodium 40 Mg/0.4 Ml Syringe) 40 mg SUBCUT Q24H [facility] Last Admin: 05/04/21 21:27 Dose: 40 mg Documented by: STELLA Famotidine (Famotidine 20 Mg Tablet) 20 mg PO BID [facility] Last Admin: 05/05/21 07:48 Dose: 20 mg Documented by: COURTNEY Glucose (Glucose Gel 15 Gm Gel..Gram.) 15 gm PO Q15M PRN; Protocol PRN Reason: per Hypoglycemia Standing Ord. Insulin Glargine (Insulin Glargine,Hum.Rec.Anlog 100 Unit/Ml 10 Ml Vial) 5 unit SUBCUT DAILY [facility] Last Admin: 05/05/21 07:46 Dose: 5 unit Documented by: COURTNEY Insulin Human Lispro (Insulin Lispro 100 Unit/Ml 3 Ml Vial) 0 unit SUBCUT QIDACHS [facility]; Protocol Last Admin: 05/05/21 11:39 Dose: 12 unit Documented by: COURTNEY Melatonin (Melatonin 3 Mg Tablet) 6 mg PO BEDTIME PRN PRN Reason: Insomnia Last Admin: 05/04/21 21:23 Dose: 6 mg Documented by: STELLA Metformin HCl (Metformin Hcl 500 Mg Tablet) 500 mg PO BIDWM [facility] Last Admin: 05/05/21 07:47 Dose: 500 mg Documented by: COURTNEY Senna (Sennosides 8.6 Mg Tablet) 17.2 mg PO BEDTIME PRN PRN Reason: Constipation Sodium Chloride (0.9 % Sodium Chloride Flush 3 Ml Syringe) 3 ml IVFLUSH QSHIFT [facility] Last Admin: 05/05/21 07:48 Dose: 3 ml Documented by: COURTNEY Labs CBC & Chem 7: 05/02/21 06:27 05/03/21 09:57 Labs: Laboratory Results - last 24 hr 05/04/21 05/04/21 05/05/21 16:09 20:18 07:09 POC Glucose 288 H 267 H 189 H 05/05/21 10:56 POC Glucose 303 H Quality Stroke Does the patient have a stroke diagnosis?: No VTE Prior VTE?: No VTE Risk Level:: Medical - moderate - high VTE Device Contraindication: Treatment Not Indicated VTE Drug Contraindication: N/A - Med Ordered
--- NOTE | 2021-05-05 13:50 | P.DS_ITS ---
DS: Providers Provider Date of Service: 05/05/21 Date of admission: 05/01/21 23:28 Date of discharge: 05/05/21 Primary care physician: Desmond Campbell MD Consults: 05/01/21 23:27 Consult to Infectious Diseases Routine Consulting Provider: Clau Barros Reason for consultation: covid PNA; confusion DS: Diagnosis Discharge Diagnosis (1) Confusion: Status: Acute (2) Pneumonia due to COVID-19 virus: Status: Acute DS: Summary Hospital Course Hospital Course: 75-year-old female with a past medical history of hypertension, diabetes presented to the hospital with a chief complaint of confusion.? Noted to have COVID-19 pneumonia. Hospital course: Patient brought to the hospital-toxic metabolic encephalopathy -due to d ehydration/hypokalemia-meds to be improving and Checked with the family seems near her baseline. COVID pneumonia lu: Seems no hypoxia, talking in full sentences required no oxygen. Complete dexamethasone course. Patient also has diabetes history but not taking any did medications: Hemoglobin A1c is above 14. Added Lantus small dose and continue sliding scale coverage. Patient probably have mild bronchitis component so will continue azithromycin course. Hypertension lu: I added small dose amlodipine. Hypokalemia repleted and resolved. Cognitive impairment lu: As per my discussion with family her son iris Mckeon and sister in law miss garcia -patient has the she issue from for 5 years, currently near her baseline, further workup outpatient as per patient's PCP. Patient management discussed with family in detail patient had probable cognitive impairment from 4-5 years, and unable to manage medications andat home generally ,also concerns of self awareness , she is also seems debilatated post COVID, does not have any help at home, due to multifactorial issues above-may benefit from short-term rehab. Above management discussed with the patient in detail length with patient's son Mike-he understand and in agreement with the above plan, time spent 50 minutes and 50% time spent on counseling. Significant findings: As above. Procedures performed: None. Treatment and response: As above. Complications: None. Time Spent with Patient Time attestation: Total time spent providing and/or coordinating discharge services: Discharge coordination time: Greater than 30 minutes Quality: Stroke Does the patient have a stroke diagnosis?: No Physical Exam Vital Signs: Vital Signs: Last Vital Signs Temp 97.1 F 05/05/21 11:51 Pulse 61 05/05/21 11:51 Resp 18 05/05/21 11:51 BP 154/59 H 05/05/21 11:51 Pulse Ox 94 05/05/21 11:51 Body Mass Index 23.2 Appearance: Aox2, not in distress.?at her basline as per family. Eyes: Pupils equal, round and reactive to light.? Sclera nonicteric.? ENT: Moist mucous membranes. cvs: rrr, [id number] , no murmur res: clear to auscultation ,no rhonchii or wheezing abd: no rebound or guarding ,nt, bs present. ext pulses present , no cyanosis . neuro: axo2 , moves all extermities? DS: Data Data Completed and Pending Labs on day of discharge: Laboratory Results - last 24 hr 05/04/21 05/04/21 05/05/21 16:09 20:18 07:09 POC Glucose 288 H 267 H 189 H 05/05/21 10:56 POC Glucose 303 H Preliminary micro results at discharge 05/01/21 21:04 Blood Culture - Preliminary Blood - Venous No growth after 48 hours. 05/01/21 20:24 Blood Culture - Preliminary Blood - Venous No growth after 48 hours. Additional Comments Additional comments: 05/03/21 09:57? Labs: Laboratory Results - last 24 hr ? 05/02/21 05/02/21 05/02/21 ? 16:19 20:04 21:09 Anion Gap ? ? ? D Estim Creat Clear Calc ? ? ? Estimated GFR ? ? ? POC Glucose ?253 H ?320 H ?307 H Random Glucose ? ? ? Calcium ? ? ? Magnesium ? ? ? Procalcitonin ? 05/03/21 05/03/21 05/03/21 ? 07:06 09:57 09:57 Anion Gap ? ?15 ? Estim Creat Clear Calc ? ?47.8 ? Estimated GFR ? ?> 60 ? POC Glucose ?254 H ? ? Random Glucose ? ?384 H* ? Calcium ? ?10.0? D ? Magnesium ? ?1.9 ? Procalcitonin ? ? ?0.08 ? 05/03/21 ? 11:05 Anion Gap ? Estim Creat Clear Calc ? Estimated GFR ? POC Glucose ?374 H* Random Glucose ? Calcium ? Magnesium ? Procalcitonin ? Microbiology Microbiology Results: Microbiology ?05/01/21 21:04 Blood Culture - Preliminary ?Blood - Venous ?? No growth after 24 hours. ?05/01/21 20:24 Blood Culture - Preliminary ?Blood - Venous ?? No growth after [address]: IMPRESSION: No acute intracranial pathology. Chronic volume loss with small vessel ischemic change. Discharge Plan Discharge Patient Disposition: [facility] Discharge Diagnosis: COVID pneumonia, Toxic metabolic encephalopathy, dm , hypokalemia [facility] - 1 Week Desmond Campbell MD [Primary Care Provider] - 1 Week Discharge Medications: New melatonin 3 mg Tablet 6 mg PO BEDTIME PRN (Reason: Insomnia) Qty: 14 RF: 0 amlodipine 5 mg Tablet 5 mg PO DAILY Qty: 30 RF: 0 Lantus U-100 Insulin 100 unit/mL Solution 5 unit subcut DAILY Qty: 10 RF: 0 azithromycin 250 mg Tablet 250 mg PO Q24H Qty: 3 RF: 0 insulin lispro [Humalog U-100 Insulin] 100 unit/mL Solution See Protocol unit subcut QIDACHS Qty: 10 RF: 0 dexamethasone 6 mg Tablet 6 mg PO DAILY Qty: 7 RF: 0 Discharge Orders: Discharge Order (Routine); Ordered 05/05/21 Ordered By: Michael Beck Diet: advance to usual diet, diabetic diet, low fat, low cholesterol and low salt diet Activity on Discharge: As tolerated Stand Alone Forms: Patient Portal Discharge page Care Plan Goals: Patient brought to the hospital-toxic metabolic encephalopathy -due to dehydration/hypokalemia-meds to be improving and Checked with the family seems near her baseline. COVID pneumonia lu: Seems no hypoxia, talking in full sentences required no oxygen. Complete dexamethasone course. Patient also has diabetes history but not taking any did medications: Hemoglobin A1c is above 14. Added Lantus small dose and continue sliding scale coverage. Patient probably have mild bronchitis component so will continue azithromycin course. Hypertension lu: I added small dose amlodipine. Health Concerns: As above. Plan of Treatment: As above. Assessment: As above.
[2021-05-05 15:31] VITALS: BP 120/59; PULSE 73; RESP 20; TEMP 36.7; O2SAT 94
[2021-05-05 16:13] LABS: Glucose, Whole Blood 328 mg/dL (60-115)
== END 2021-05-05 19:30 | disposition skilled nursing facility (03) | DRG 177 ==
LOC: HO.ED 18:29 → HO.EDOVER 23:47 → HO.IMC 05-02 07:01
PROVIDERS: Internal Medicine; Admitting Provider Hospitalist; Emergency Provider Emergency Medicine Emergency Medical Services; PCP Internal Medicine; Visit Provider Internal Medicine
DX: U07.1 COVID-19 (principal); J12.82 Pneumonia due to coronavirus disease 2019; G92.9 Unspecified toxic encephalopathy; E86.0 Dehydration; E11.8 Type 2 diabetes mellitus with unspecified complications; J40 Bronchitis, not specified as acute or chronic; G31.84 Mild cognitive impairment of uncertain or unknown etiology; E87.6 Hypokalemia; I10 Essential (primary) hypertension; Z88.0 Allergy status to penicillin; Z88.6 Allergy status to analgesic agent; Z79.899 Other long term (current) drug therapy
CPT/HCPCS: 0241U; 36415; 70450; 71045; 80048; 81001; 82947; 83036; 83605; 83735; 84145; 84443; 85025; 87040; 93005; 97162; 99285; J0696; J1650; J8540

== ENCOUNTER 2021-08-12 17:53 | Emergency (ER) | payer OTHER, SELFPAY ==
[2021-08-12 18:04] VITALS: BP 169/84; PULSE 72; O2SAT 98
[2021-08-12 18:09] VITALS: BP 145/67; PULSE 78; RESP 16; TEMP 36.7; O2SAT 99; BMI 23.8
[2021-08-12 21:17] LABS: Glucose, Whole Blood 457 mg/dL (60-115)
[2021-08-13 01:35] LABS: MANUAL DIFF FLAG NO
[2021-08-13 01:43] LABS: Basophils Absolute Auto 0.1 X10*3/uL (0.0-0.2); Basophils Percent Auto 0.8 % (0-2); Eosinophils Absolute Auto 0.7 X10*3/uL (0.0-0.4); Hematocrit 39.8 % (37.0-47.0); Hemoglobin 13.5 g/dl (12.0-16.0); Imm Gran Abs Auto 0.04 X10*3/uL (0.00-0.03); Imm Gran Pct Auto 0.5 % (0.0-0.4); Lymphocytes Absolute Auto 1.8 X10*3/uL (1.2-4.9); Lymphocytes Percent Auto 25.1 % (20-40); Mean Corpuscular HGB Conc 33.9 g/dl (31.0-35.0); Mean Corpuscular Hemoglobin 27.9 pg (27.0-33.0); Mean Corpuscular Volume 82.2 fL (80.0-98.0); Mean Platelet Volume 9.5 fL (9.4-12.3); Monocytes Absolute Auto 0.7 X10*3/uL (0.1-1.2); Neutrophils Percent Auto 54.6 % (45-73); Platelet Count 314 X10*3/uL (160-400); Red Blood Count 4.84 X10*6/uL (4.20-5.50); Red Cell Distribution Width 12.7 % (11.0-16.0); White Blood Count 7.3 X10*3/uL (4.8-10.8)
[2021-08-13 01:54] LABS: Alanine Aminotransferase 11 U/L (0-31); Albumin Level 4.1 g/dL (3.5-5.0); Alkaline Phosphatase 104 U/L (39-117); Anion Gap 13 (12-20); Aspartate Amino Transferase 9 U/L (5-31); Bilirubin Total 0.5 mg/dL (0.0-1.0); Blood Urea Nitrogen 11 mg/dL (9-16); COVID-19 Test Negative (Negative); Calcium 10.2 mg/dL (8.4-10.2); Carbon Dioxide 27 mmol/L (22-29); Chloride 100 mmol/L (96-108); Creatinine Clr Calc Pharmacy 49.9; Estimated Glomerular Filt Rate > 60; Glucose Random 331 mg/dL (60-115); Potassium 2.7 mmol/L (3.3-5.1); Sodium 137 mmol/L (135-145); Total Protein 7.3 g/dL (6.5-8.0)
[2021-08-13 02:23] LABS: Glucose, Whole Blood 315 mg/dL (60-115)
[2021-08-13 06:07] VITALS: BP 182/73; PULSE 77; RESP 18; TEMP 37.2; O2SAT 97
--- NOTE | 2021-08-13 07:01 | ECG_ITS ---
Test Reason : GEN MED Blood Pressure : / mmHG Vent. Rate : 074 BPM Atrial Rate : 074 BPM P-R Int : 144 ms QRS Dur : 084 ms QT Int : 394 ms P-R-T Axes : 061 023 045 degrees QTc Int : 437 ms Artifact in tracing Normal sinus rhythm Nonspecific ST and T wave abnormality Borderline ECG When compared with ECG of 01-MAY-2021 19:59, No significant change was found Referred By: Fatoumata Hansen Electronically Signed By:TITI PARKER
--- NOTE | 2021-08-13 07:01 | ED.GENADULT ---
HPI - General Adult General Chief complaint: General Medical Stated complaint: hyperglycemia Time Seen by Provider: 08/12/21 17:58 Source: patient and family Mode of arrival: ambulatory Limitations: no limitations History of Present Illness HPI narrative: Patient comes to the emergency room complaining hyperglycemia. When patient was seen in triage, patient voiced no complaints. When I spoke to patient, patient states that she does not know why she is here. Patient thinks that she might have felt dizzy earlier today but she is not sure. At this time, patient has no dizziness, no chest pain or shortness of breath. Patient complaining of feeling cold, but otherwise she has no complaints. Related Data Previous Rx's Medication Instructions Recorded amlodipine 5 mg tablet 5 mg PO DAILY #30 tab 05/04/21 azithromycin 250 mg tablet 250 mg PO Q24H #3 tab 05/04/21 dexamethasone 6 mg tablet 6 mg PO DAILY #7 tab 05/04/21 insulin glargine 100 unit/mL 5 unit (0.05 mL) SUBCUT DAILY #10 05/04/21 subcutaneous solution (Lantus ml U-100 Insulin) insulin lispro 100 unit/mL See Protocol SUBCUT QIDACHS #10 ml 05/04/21 subcutaneous solution (Humalog U-100 Insulin) melatonin 3 mg tablet 6 mg PO BEDTIME PRN #14 tab 05/04/21 Allergies Allergy/AdvReac Type Severity Reaction Status Date / Time Penicillins [PENICILLINS] Allergy Unknown UNKNOWN Unverified 04/15/20 15:11 aspirin Allergy Unknown Uncoded 06/30/13 00:00 PCN Allergy Unknown Uncoded 06/30/13 00:00 Review of Systems Review of Systems: Constitutional : No Weight loss, No Fever, No Chills, No Night Sweats, No Fatigue, No Malaise, feeling cold ENT/Mouth : No Hearing loss, No Ear Pain, No Nasal Congestion, No Sinus Pain, No Hoarseness, No sore throat, No Rhinorrhea, No Swallowing Difficulty Eyes: No Eye Pain, No Swelling, No Redness, No Foreign Body, No Discharge, No Vision Changes Cardiovascular : No Chest Pain, No SOB, No Dyspnea on Exertion, No Orthopnea, No Edema, No Palpitations Respiratory : No Cough, No Sputum, No Wheezing, No Smoke Exposure, No Dyspnea Gastrointestinal : No Nausea, No Vomiting, No Diarrhea, No Constipation, No abdominal Pain, No Hematochezia, No Melena Genitourinary : no irregular bleeding, No Dysuria, No Urinary Frequency, No Hematuria, No Urinary Incontinence, No Urgency, No Flank Pain, No Urinary Flow Changes, No Hesitancy Musculoskeletal : No joint pain, No Myalgias, No Joint Swelling Skin : No Skin Lesions, No rash Neuro : No Weakness, No Numbness, No Paresthesias, No Loss of Consciousness, patient not sure if she was dizzy earlier today, No Headache Psych : No Anxiety/Panic, No Depression, No SI/HI/AH/VH, No Social Issues, Heme/Lymph: No Bruising, No Bleeding,No Lymphadenopathy Endocrine : No Polyuria, No Polydipsia, No Temperature Intolerance, complaining of elevated blood sugar [facility] Past Medical History Medical History (Updated 08/13/21 @ 11:28 by Fatoumata Hansen MD) Diabetes type 2, uncontrolled Hypertension Social History Social History Household Members: Other Household Members Other:: alone Housing: Apartment Do you presently have visiting nurse or other home services: No Alcohol intake: never Patient Tobacco Use Status: Never used Tobacco Advance Directives: No service: No Current occupational status: unemployed Physical Exam Vital Signs: Vital Signs: Last Vital Signs Temp 98.9 F 08/13/21 06:07 Pulse 77 08/13/21 06:07 Resp 18 08/13/21 06:07 BP 182/73 H 08/13/21 06:07 Pulse Ox 97 08/13/21 06:07 BMI result Body Mass Index 23.8 Const: Other: Appearance: Alert. Oriented X3. No acute distress. Eyes: Pupils equal, round and reactive to light. ENT: Pharynx normal. Neck: Normal inspection. Neck supple. No lymph nodes noted. No crepitus CVS: Normal heart rate and rhythm. Pulses normal. Normal S1 and S2 Respiratory: No respiratory distress. Breath sounds normal. No Wheezing. No rales Abdomen: Soft and nontender. No rigidity. No distention. Skin: Skin warm and dry. Normal skin color. Normal skin turgor. Extremities: No lower extremity edema. No Lacerations. No Rash Neuro: Oriented X 3. No motor deficit. No sensory deficit. Moving all extermities. No slurred speech. Course Course Course Narrative: Potassium was repleted. Glucose is now 158. Troponin has lessened delta 50 increased. Patient has no chest pain, no dizziness. Patient will be discharged home now Medical Decision Making Lab Data Result diagrams: 08/13/21 01:30 08/13/21 01:30 Labs: Lab Results 08/12/21 08/13/21 08/13/21 Range/Units 18:11 01:30 01:30 WBC 7.3 (4.8-10.8) X10*3/uL RBC 4.84 (4.20-5.50) X10*6/uL Hgb 13.5 (12.0-16.0) g/dl Hct 39.8 (37.0-47.0) % MCV 82.2 (80.0-98.0) fL MCH 27.9 (27.0-33.0) pg MCHC 33.9 (31.0-35.0) g/dl RDW 12.7 (11.0-16.0) % Plt Count 314 (160-400) X10*3/uL MPV 9.5 (9.4-12.3) fL Immature Gran % (Auto) 0.5 H (0.0-0.4) % Neut % (Auto) 54.6 (45-73) % Lymph % (Auto) 25.1 (20-40) % [place] % (Auto) 10.0 (2-11) % Eos % (Auto) 9.0 H (0-4) % Baso % (Auto) 0.8 (0-2) % Lymph # (Auto) 1.8 (1.2-4.9) X10*3/uL [place] # (Auto) 0.7 (0.1-1.2) X10*3/uL Eos # (Auto) 0.7 H (0.0-0.4) X10*3/uL Baso # (Auto) 0.1 (0.0-0.2) X10*3/uL Abs Immat Gran (auto) 0.04 H (0.00-0.03) X10*3/uL Absolute Neuts (auto) 4.0 (2.0-8.3) x10*3/uL Absolute Nucleated RBC 0.000 (0.0-0.012) X10*3/uL Nucleated RBC % (auto) 0.0 (0.0-0.2) /100WBC Sodium 137 (135-145) mmol/L Potassium 2.7 L D (3.3-5.1) mmol/L Chloride 100 (96-108) mmol/L Carbon Dioxide 27 (22-29) mmol/L Anion Gap 13 (12-20) BUN 11 (9-16) mg/dL Creatinine 0.77 (0.5-1.4) mg/dL Estim Creat Clear Calc 49.9 Estimated GFR > 60 POC Glucose 457 H* (60-115) mg/dL Random Glucose 331 H (60-115) mg/dL Calcium 10.2 (8.4-10.2) mg/dL Total Bilirubin 0.5 (0.0-1.0) mg/dL AST 9 (5-31) U/L ALT 11 (0-31) U/L Alkaline Phosphatase 104 (39-117) U/L Troponin I High Sens (<3.5-17.0) ng/L Total Protein 7.3 (6.5-8.0) g/dL Albumin 4.1 (3.5-5.0) g/dL COVID-19 (FE) (Negative) COVID-19 Clin Com 08/13/21 08/13/21 08/13/21 Range/Units 01:30 01:30 02:19 WBC (4.8-10.8) X10*3/uL RBC (4.20-5.50) X10*6/uL Hgb (12.0-16.0) g/dl Hct (37.0-47.0) % MCV (80.0-98.0) fL MCH (27.0-33.0) pg MCHC (31.0-35.0) g/dl RDW (11.0-16.0) % Plt Count (160-400) X10*3/uL MPV (9.4-12.3) fL Immature Gran % (Auto) (0.0-0.4) % Neut % (Auto) (45-73) % Lymph % (Auto) (20-40) % [place] % (Auto) (2-11) % Eos % (Auto) (0-4) % Baso % (Auto) (0-2) % Lymph # (Auto) (1.2-4.9) X10*3/uL [place] # (Auto) (0.1-1.2) X10*3/uL Eos # (Auto) (0.0-0.4) X10*3/uL Baso # (Auto) (0.0-0.2) X10*3/uL Abs Immat Gran (auto) (0.00-0.03) X10*3/uL Absolute Neuts (auto) (2.0-8.3) x10*3/uL Absolute Nucleated RBC (0.0-0.012) X10*3/uL Nucleated RBC % (auto) (0.0-0.2) /100WBC Sodium (135-145) mmol/L Potassium (3.3-5.1) mmol/L Chloride (96-108) mmol/L Carbon Dioxide (22-29) mmol/L Anion Gap (12-20) BUN (9-16) mg/dL Creatinine (0.5-1.4) mg/dL Estim Creat Clear Calc Estimated GFR POC Glucose 315 H (60-115) mg/dL Random Glucose (60-115) mg/dL Calcium (8.4-10.2) mg/dL Total Bilirubin (0.0-1.0) mg/dL AST (5-31) U/L ALT (0-31) U/L Alkaline Phosphatase (39-117) U/L Troponin I High Sens 7.1 (<3.5-17.0) ng/L Total Protein (6.5-8.0) g/dL Albumin (3.5-5.0) g/dL COVID-19 (FE) Negative (Negative) COVID-19 Clin Com See Note 08/13/21 08/13/21 Range/Units 09:24 10:22 WBC (4.8-10.8) X10*3/uL RBC (4.20-5.50) X10*6/uL Hgb (12.0-16.0) g/dl Hct (37.0-47.0) % MCV (80.0-98.0) fL MCH (27.0-33.0) pg MCHC (31.0-35.0) g/dl RDW (11.0-16.0) % Plt Count (160-400) X10*3/uL MPV (9.4-12.3) fL Immature Gran % (Auto) (0.0-0.4) % Neut % (Auto) (45-73) % Lymph % (Auto) (20-40) % [place] % (Auto) (2-11) % Eos % (Auto) (0-4) % Baso % (Auto) (0-2) % Lymph # (Auto) (1.2-4.9) X10*3/uL [place] # (Auto) (0.1-1.2) X10*3/uL Eos # (Auto) (0.0-0.4) X10*3/uL Baso # (Auto) (0.0-0.2) X10*3/uL Abs Immat Gran (auto) (0.00-0.03) X10*3/uL Absolute Neuts (auto) (2.0-8.3) x10*3/uL Absolute Nucleated RBC (0.0-0.012) X10*3/uL Nucleated RBC % (auto) (0.0-0.2) /100WBC Sodium (135-145) mmol/L Potassium (3.3-5.1) mmol/L Chloride (96-108) mmol/L Carbon Dioxide (22-29) mmol/L Anion Gap (12-20) BUN (9-16) mg/dL Creatinine (0.5-1.4) mg/dL Estim Creat Clear Calc Estimated GFR POC Glucose 158 H (60-115) mg/dL Random Glucose (60-115) mg/dL Calcium (8.4-10.2) mg/dL Total Bilirubin (0.0-1.0) mg/dL AST (5-31) U/L ALT (0-31) U/L Alkaline Phosphatase (39-117) U/L Troponin I High Sens 8.3 (<3.5-17.0) ng/L Total Protein (6.5-8.0) g/dL Albumin (3.5-5.0) g/dL COVID-19 (FE) (Negative) COVID-19 Clin Com Discharge Plan Discharge Clinical Impression: Acute hyperglycemia, Acute hypokalemia Patient Disposition: Home, Self-Care Instructions: Diabetic Hyperglycemia (ED) Additional Instructions: Please increase your Lantus insulin by 2 units. Please follow-up with your primary care physician tomorrow. If you have any worsening or new symptoms, please return to the emergency room or call 911 Prescriptions: No Action Lantus U-100 Insulin 100 unit/mL Solution 5 unit subcut DAILY Qty: 10 RF: 0 azithromycin 250 mg Tablet 250 mg PO Q24H Qty: 3 RF: 0 dexamethasone 6 mg Tablet 6 mg PO DAILY Qty: 7 RF: 0 amlodipine 5 mg Tablet 5 mg PO DAILY Qty: 30 RF: 0 melatonin 3 mg Tablet 6 mg PO BEDTIME PRN (Reason: Insomnia) Qty: 14 RF: 0 insulin lispro [Humalog U-100 Insulin] 100 unit/mL Solution See Protocol unit subcut QIDACHS Qty: 10 RF: 0
[2021-08-13] MEDS: Potassium Chloride Packet 20 MEQ PACKET 40 MEQ PO (07:38)
[2021-08-13] MEDS: Insulin Regular, Human 100 UNIT/ML 3 ML VIAL IVPUSH (07:55)
[2021-08-13] MEDS: 0.9 % Sodium Chloride 1,000 ML 999 ML IVCONT (07:56)
[2021-08-13 07:57] LABS: Troponin-I High Sensitivity 7.1 ng/L (<3.5-17.0)
[2021-08-13 09:29] LABS: Glucose, Whole Blood 158 mg/dL (60-115)
[2021-08-13 11:01] LABS: Troponin-I High Sensitivity 8.3 ng/L (<3.5-17.0)
[2021-08-13 15:44] VITALS: BP 145/50; PULSE 67; RESP 16; TEMP 36.2; O2SAT 99
[2021-08-13 17:51] LABS: Glucose, Whole Blood 236 mg/dL (60-115)
[2021-08-13 19:24] VITALS: BP 166/66; PULSE 77; RESP 16; TEMP 36.8; O2SAT 97
[2021-08-13 19:39] LABS: MANUAL DIFF FLAG NO
[2021-08-13 19:40] LABS: Basophils Absolute Auto 0.1 X10*3/uL (0.0-0.2); Basophils Percent Auto 0.7 % (0-2); Eosinophils Absolute Auto 0.5 X10*3/uL (0.0-0.4); Eosinophils Percent Auto 7.3 % (0-4); Hematocrit 41.3 % (37.0-47.0); Hemoglobin 13.5 g/dl (12.0-16.0); Imm Gran Abs Auto 0.02 X10*3/uL (0.00-0.03); Imm Gran Pct Auto 0.3 % (0.0-0.4); Lymphocytes Absolute Auto 1.4 X10*3/uL (1.2-4.9); Lymphocytes Percent Auto 20.1 % (20-40); Mean Corpuscular HGB Conc 32.7 g/dl (31.0-35.0); Mean Corpuscular Hemoglobin 27.8 pg (27.0-33.0); Mean Platelet Volume 9.8 fL (9.4-12.3); Monocytes Absolute Auto 0.8 X10*3/uL (0.1-1.2); Monocytes Percent Auto 11.3 % (2-11); Neutrophils Absolute Auto 4.3 x10*3/uL (2.0-8.3); Neutrophils Percent Auto 60.3 % (45-73); Platelet Count 293 X10*3/uL (160-400); Red Blood Count 4.86 X10*6/uL (4.20-5.50); Red Cell Distribution Width 12.7 % (11.0-16.0); White Blood Count 7.1 X10*3/uL (4.8-10.8)
[2021-08-13 19:47] LABS: Appearance Urine HAZY; Color Urine YELLOW; Glucose Urine UA >=1000 MG/DL (NEG); Leukocyte Esterase Urine NEG (NEG); Nitrite Urine NEG (NEG); PH 6.5 (5.0-8.0); Specific Gravity - Urine 1.025 (1.005-1.025); UACC Culture Trigger NO; Urine Blood 1+ (NEG); Urine Ketones 5 MG/DL (NEG); Urine Protein NEG (NEG-TRACE)
[2021-08-13 20:04] LABS: Bacteria Urine TRACE /LPF; Squamous Epithelial Cell Urine TRACE /LPF; WBC Urine 0 /HPF (0-4)
[2021-08-13 20:05] LABS: Mucus Urine 1+ /LPF
[2021-08-13 20:31] LABS: Alanine Aminotransferase 8 U/L (0-31); Albumin Level 3.5 g/dL (3.5-5.0); Alkaline Phosphatase 91 U/L (39-117); Anion Gap 15 (12-20); Aspartate Amino Transferase 15 U/L (5-31); Bilirubin Direct 0.2 mg/dL (0.0-0.5); Bilirubin Total 0.5 mg/dL (0.0-1.0); Blood Urea Nitrogen 10 mg/dL (9-16); Calcium 9.5 mg/dL (8.4-10.2); Carbon Dioxide 22 mmol/L (22-29); Chloride 106 mmol/L (96-108); Creatinine Clr Calc Pharmacy 52.6; Estimated Glomerular Filt Rate > 60; Glucose Random 280 mg/dL (60-115); Potassium 3.6 mmol/L (3.3-5.1); Sodium 139 mmol/L (135-145); Total Protein 6.6 g/dL (6.5-8.0)
[2021-08-13 23:59] VITALS: RESP 16
[2021-08-14 02:00] VITALS: RESP 16
[2021-08-14 04:00] VITALS: RESP 16
--- NOTE | 2021-08-14 07:58 | PC.NURSE ---
Pt sleeping at this time, bed alarm on, call ferrer within reach.
[2021-08-14 08:48] VITALS: BP 152/74; PULSE 69; RESP 16; TEMP 37.1; O2SAT 95
--- NOTE | 2021-08-14 11:45 | PC.NURSE ---
Pt sleeping, awakes to voice as well as on her own, OOB to bathroom with standby assist. Oriented to person only at this time. ED PA checked on patient, updated on mentation. Plan for PT eval and case management. Call ferrer within reach, will continue to monitor.
--- NOTE | 2021-08-14 13:30 | PC.NURSE ---
Pt awake, oriented to person and place, but states the year is 2020. Reoriented to date. Ambulatory to the BR with no assist, sitting bedside at this time eating lunch. Awaiting PT eval, will continue to monitor.
[2021-08-14 16:36] VITALS: BP 143/58; PULSE 74; RESP 16; TEMP 36.3; O2SAT 95
--- NOTE | 2021-08-14 16:37 | PC.NURSE ---
PATIENT RESTING IN BED .
--- NOTE | 2021-08-14 19:12 | PC.NURSE ---
PATIENT ATE 100 % OF DINNER ,DRANK 480 ML FLUIDS .
[2021-08-14 21:25] VITALS: BP 144/70; PULSE 62; RESP 16; TEMP 36.1; O2SAT 96
[2021-08-14 23:44] VITALS: BP 144/68; PULSE 68; RESP 16; O2SAT 96
[2021-08-15 06:24] VITALS: BP 153/69; PULSE 72; RESP 16; O2SAT 96
[2021-08-15 07:32] LABS: Glucose, Whole Blood 240 mg/dL (60-115)
[2021-08-15 08:57] VITALS: BP 139/59; PULSE 91; RESP 15; O2SAT 95
--- NOTE | 2021-08-15 11:20 | PC.NURSE ---
Pt Alert, oriented to person, place and situation this morning. Pt eval completed, pt uses walker at home indepently, able to do same here. Awaiting dispo, will continue to monitor.
[2021-08-15 11:52] LABS: Glucose, Whole Blood 362 mg/dL (60-115)
--- NOTE | 2021-08-15 12:23 | PHA.MEDREC ---
Pharmacy Consult ? Medication Reconciliation Pharmacy has completed the medication reconciliation. Patient unsure what she takes at home. She has a nurse but could not tell me contact info. Tried to contact [facility] pharmacy, but there was no answer. Most likely closed due to the holiday. Completed med rec based on claim history. Will follow-up tomorrow. Tricia Luna, DebbyD
--- NOTE | 2021-08-15 12:42 | MHC.CM.ED ---
Received case management consult overnight. Patient came to ER due to hyperglycemia. Patient was going to be d/c'd home. However, was confused. Physical therapy eval completed. No services recommended at this time. Met with patient in regards to discharge planning. Patient lives alone and ambulates with a walker. Patient feels she can safely go home. Spoke with patient's son/HCP, Magnolia via telephone. Magnolia verbalized understanding and agreeable to patient to be discharged home. Action chair van booked. Patient, Karlene Hampton RN and Dayami BAKER aware. Continue to monitor for d/c needs.
== END 2021-08-15 14:46 | disposition home or self-care (01) ==
PROVIDERS: Physician Assistant; Emergency Provider Emergency Medicine; PCP Internal Medicine
DX: E11.65 Type 2 diabetes mellitus with hyperglycemia (principal); E87.6 Hypokalemia; I10 Essential (primary) hypertension; Z20.822 Contact with and (suspected) exposure to COVID-19; Z79.4 Long term (current) use of insulin
CPT/HCPCS: 36415; 51701; 80048; 80053; 80076; 81001; 82947; 83735; 84484; 85025; 87635; 93005; 96361; 96374; 97161; 99285

== ENCOUNTER 2021-10-25 11:03 | Inpatient (IN) | payer OTHER, SELFPAY ==
--- NOTE | ~2021-10-25 | XR_ITS ---
EXAMINATION: XR CHEST CLINICAL INFORMATION: Weakness. COMPARISON: None TECHNIQUE: Frontal view of the chest was obtained. FINDINGS: No significant abnormality is noted involving the heart, lungs, mediastinum, bony thorax or soft tissues. XR/XR chest 1V IMPRESSION: Unremarkable chest examination.
--- NOTE | ~2021-10-25 | CT_ITS ---
EXAMINATION: CT HEAD WITHOUT CONTRAST CLINICAL INFORMATION: Confusion. COMPARISON: CT scan of the head 05/02/2021. TECHNIQUE: Contiguous axial imaging was performed from the skull base to vertex without intravenous administration of contrast. This CT examination was performed using dose optimization techniques as appropriate, variously including the following: *Automated exposure control *Adjustment of mA and/or kV according to patient size (this includes techniques or standardized protocols for targeted exams where dose is matched to indication/reason for exam; i.e. extremities or head) *Use of iterative reconstruction technique DLP: 615 mGy-cm FINDINGS: There are scattered nonspecific foci of hypoattenuation within the periventricular white matter that most likely represent a chronic manifestation of small vessel ischemia. Grossly no evidence of acute territorial infarct. There is no acute hemorrhage or abnormal extra-axial collection. The ventricular volumes are and large and there is relative effacement of the sulcal spaces particularly near the vertex and there is severe narrowing of the callosal angle. The calvarium and skull base are intact. Mastoid air cells and middle ear cavities are well aerated. No active paranasal sinus disease. CT/CT head/brain wo con IMPRESSION: There are multiple anatomic features that indicate the likelihood of normal pressure hydrocephalus. Scattered chronic small vessel ischemic changes are also visualized within the periventricular white matter. No evidence of acute territorial infarct or hemorrhage.
--- NOTE | 2021-10-25 11:28 | ECG_ITS ---
Test Reason : HTN Blood Pressure : / mmHG Vent. Rate : 062 BPM Atrial Rate : 062 BPM P-R Int : 136 ms QRS Dur : 078 ms QT Int : 390 ms P-R-T Axes : 012 042 104 degrees QTc Int : 395 ms Normal sinus rhythm with sinus arrhythmia Nonspecific T wave abnormality Abnormal ECG When compared with ECG of 13-AUG-2021 07:30, Nonspecific T wave abnormality, worse in Anterolateral leads Referred By: Mikayla Bee Electronically Signed By:TITI PARKER
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
[2021-10-25 11:39] VITALS: BP 130/60; BP 160/78; PULSE 67; PULSE 70; RESP 10; TEMP 36.8; O2SAT 100; O2SAT 94; BMI 18.2
[2021-10-25 11:39] LABS: Glucose, Whole Blood 329 mg/dL (60-115)
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
[2021-10-25 12:42] LABS: VBG Base Excess 5.8 mmol/L; VBG HCO3 29 mmol/L (22-26); VBG pCO2 38 mmHg; VBG pH 7.48 (7.32-7.43); VBG pO2 55 mmHg
[2021-10-25 12:43] LABS: Venous Blood Gas Refer to POC result
[2021-10-25 12:43] LABS: Prothrombin Time 11.3 SEC (9.9-13.0)
[2021-10-25 12:44] LABS: Ammonia 29 umol/L (13-55)
[2021-10-25 12:56] LABS: Lactic Acid 2.7 mmol/L (0.5-2.0)
[2021-10-25 12:59] LABS: Alanine Aminotransferase 15 U/L (0-31); Albumin Level 3.7 g/dL (3.5-5.0); Alkaline Phosphatase 73 U/L (39-117); Anion Gap 12 (12-20); Aspartate Amino Transferase 10 U/L (5-31); Bilirubin Direct 0.2 mg/dL (0.0-0.5); Bilirubin Total 0.5 mg/dL (0.0-1.0); Blood Urea Nitrogen 8 mg/dL (9-16); Calcium 9.5 mg/dL (8.4-10.2); Carbon Dioxide 28 mmol/L (22-29); Chloride 102 mmol/L (96-108); Creatinine Clr Calc Pharmacy 48.6; Estimated Glomerular Filt Rate > 60; Glucose Random 250 mg/dL (60-115); Magnesium 1.8 mg/dL (1.6-2.6); Potassium 2.7 mmol/L (3.3-5.1); Sodium 139 mmol/L (135-145); Total Protein 6.2 g/dL (6.5-8.0)
[2021-10-25 13:05] LABS: COVID-19 Test Negative (Negative); IDNOW Serial# 16C4AD1C
[2021-10-25 13:11] LABS: MANUAL DIFF FLAG NO
[2021-10-25 13:12] LABS: Basophils Percent Auto 0.4 % (0-2); Eosinophils Percent Auto 0.8 % (0-4); Hematocrit 40.3 % (37.0-47.0); Hemoglobin 13.9 g/dl (12.0-16.0); Imm Gran Abs Auto 0.01 X10*3/uL (0.00-0.03); Imm Gran Pct Auto 0.2 % (0.0-0.4); Lymphocytes Absolute Auto 1.4 X10*3/uL (1.2-4.9); Lymphocytes Percent Auto 29.6 % (20-40); Mean Corpuscular HGB Conc 34.5 g/dl (31.0-35.0); Mean Corpuscular Hemoglobin 27.3 pg (27.0-33.0); Mean Platelet Volume 10.5 fL (9.4-12.3); Monocytes Absolute Auto 0.3 X10*3/uL (0.1-1.2); Monocytes Percent Auto 5.9 % (2-11); Neutrophils Percent Auto 63.1 % (45-73); Platelet Count 229 X10*3/uL (160-400); Red Cell Distribution Width 13.4 % (11.0-16.0); White Blood Count 4.8 X10*3/uL (4.8-10.8)
[2021-10-25 13:13] LABS: Acetone, serum QL Negative (Negative)
[2021-10-25] MEDS: 0.9 % Sodium Chloride 1,000 ML 999 ML IV ×2 (13:14→16:58)
[2021-10-25 13:20] LABS: TSH reflex Free T4 1.38 uIU/mL (0.32-4.0)
--- NOTE | 2021-10-25 13:27 | PHA.MEDREC ---
Pharmacy Consult ? Medication Reconciliation Pharmacy has completed the medication reconciliation.
[2021-10-25 14:00] VITALS: BP 133/55; PULSE 60; RESP 14; O2SAT 100
[2021-10-25] MEDS: Potassium Chloride ER 20 MEQ TAB.ER.PRT 40 MEQ PO (14:05)
[2021-10-25] MEDS: Potassium Chloride/H20 10 MEQ/100 ML PIGGYBACK 100 MEQ IV ×4 (14:05→20:35)
[2021-10-25 14:34] LABS: Reflex Lactate? Lactic Acid Added
[2021-10-25 15:36] LABS: Appearance Urine HAZY; Color Urine YELLOW; Glucose Urine UA >=1000 MG/DL (NEG); Leukocyte Esterase Urine NEG (NEG); Nitrite Urine NEG (NEG); PH 5.5 (5.0-8.0); Urine Blood NEG (NEG); Urine Ketones NEG (NEG); Urine Protein NEG (NEG-TRACE)
[2021-10-25 15:50] LABS: ~Lactic Acid-LAB USE ONLY 3.9 mmol/L (0.5-2.0)
[2021-10-25 15:51] LABS: Bacteria Urine TRACE /LPF; Mucus Urine TRACE /LPF; Squamous Epithelial Cell Urine 2+ /LPF; WBC Clumps Urine NOTED
[2021-10-25 15:58] VITALS: BP 126/63; PULSE 68; RESP 16; TEMP 36.5; O2SAT 96
--- NOTE | 2021-10-25 16:10 | P.HPHOSP_ITS ---
History of Present Illness Date of Service: 10/25/21 Attending physician on admission: Satya Holbrook Chief Complaint: Hyperglycemia 76-year-old woman presenting to the ER after being seen at her primary care doctor's office and found to be hypertensive and hyperglycemic. According to lester crowe patient's son Magnolia Medrano ([phone]), she has been staying with him for a few days because her freezer was not working. She happened to have a PCP appointment and he brought her and they told him to bring her to the ER right away. He told me that he believes that she has not been taking her medications properly at least over the last 2 months, she lives alone. He states that he is unable to take care of her because he has a disabled son and the rest of the family is not interested and caring for her either. The patient is oriented to self only and is unable to give any accurate historical information. She was noted to have potassium of 2.7 and initial lactic acid of 2.7 with repeat of 3.9. Blood sugar was 250 and she is on Lantus and metformin at home however he does not know if she is taking her medications. Chest x-ray and head CT both negative for any acute abnormality. In the ER she received a dose of potassium, Rocephin and 1 L of IV fluid. Be admitted for further management of treatment of multiple electrolyte abnormalities, hyperglycemia and failure to thrive. Review of Systems Review of Systems: Yes Unobtainable due to mental status [facility] Medical History (Updated 10/25/21 @ 15:58 by Mikayla Bee DO) Cognitive impairment Diabetes type 2, uncontrolled Hypertension Social History Household Members: Other Household Members Other:: alone Housing: Apartment Do you presently have visiting nurse or other home services: No Alcohol intake: never Patient Tobacco Use Status: Never used Tobacco Advance Directives: Yes Advance Directives on File: Yes Advance Directives Date on File: 05/06/21 service: No Current occupational status: unemployed Meds Allergies Allergy/AdvReac Type Severity Reaction Status Date / Time Penicillins [PENICILLINS] Allergy Unknown UNKNOWN Unverified 10/25/21 11:39 aspirin Allergy Unknown Unknown Uncoded 10/25/21 11:39 PCN Allergy Unknown Unknown Uncoded 10/25/21 11:39 Active Medications: Current Medications Potassium Chloride () 10 meq in 100 mls @ 100 mls/hr IV Q1H CORA Stop: 10/25/21 17:14 Last Admin: 10/25/21 14:05 Dose: 100 mls/hr Documented by: Ceftriaxone Sodium 1 gm/ (Sodium Chloride) 50 mls @ 100 mls/hr IV ONCE ONE Stop: 10/25/21 16:22 Sodium Chloride (Ns) 1,000 mls @ 999 mls/hr IV .Q1H1M [facility] Stop: 10/25/21 17:00 Pharmacy Consult (Consult Rx Perform Med Rec) 1 each MISCELLANE ONCE PRN PRN Reason: Consult order Home Medications Medication Instructions Recorded Confirmed Last Taken Type metformin 500 mg tablet,extended 2 tab PO BIDWM 08/15/21 10/25/21 Unknown History release 24 hr albuterol sulfate 90 mcg/actuation 1 - 2 puff INHALATION Q4H PRN 10/25/21 10/25/21 Unknown History aerosol inhaler (Ventolin HFA) atorvastatin 40 mg tablet 40 mg PO BEDTIME 10/25/21 10/25/21 Unknown History insulin glargine 100 unit/mL (3 5 unit SUBCUT DAILY 10/25/21 10/25/21 Unknown History mL) subcutaneous pen (Lantus Solostar U-100 Insulin) Physical Exam Vital Signs and Narrative: Vital Signs: Last Vital Signs Temp 97.7 F 10/25/21 15:58 Pulse 68 10/25/21 15:58 Resp 16 10/25/21 15:58 BP 126/63 10/25/21 15:58 Pulse Ox 96 10/25/21 15:58 BMI result Body Mass Index 18.2 Appearing in no acute distress head is normocephalic atraumatic eyes pupils are PERRLA sclera is anicteric mouth throat mucous membranes are intact and moist neck is supple no lymphadenopathy, no JVD noted lung sounds are clear to auscultation heart regular rate rhythm, clear S1, S2 positive bowel sounds, abdomen is soft, nontender neuro patient is alert to person only, confused Results Labs CBC and Chem 7: 10/25/21 12:29 10/25/21 12:29 Labs: Laboratory Results - last 24 hr 10/25/21 10/25/21 10/25/21 11:35 12:29 12:29 MCV 79.0 L MCH 27.3 MCHC 34.5 RDW 13.4 Plt Count 229 MPV 10.5 Immature Gran % (Auto) 0.2 Neut % (Auto) 63.1 Lymph % (Auto) 29.6 [place] % (Auto) 5.9 Eos % (Auto) 0.8 Baso % (Auto) 0.4 Lymph # (Auto) 1.4 [place] # (Auto) 0.3 Eos # (Auto) 0.0 Baso # (Auto) 0.0 Abs Immat Gran (auto) 0.01 Absolute Neuts (auto) 3.0 Absolute Nucleated RBC 0.000 Nucleated RBC % (auto) 0.0 PT 11.3 INR 1.0 APTT 29.0 VBG pH VBG pCO2 VBG pO2 VBG HCO3 VBG O2 Saturation VBG Base Excess Anion Gap Estim Creat Clear Calc Estimated GFR POC Glucose 329 H Random Glucose Lactic Acid Lactic Acid F/U @ 2Hr Calcium Magnesium Total Bilirubin Direct Bilirubin AST ALT Alkaline Phosphatase Ammonia Troponin I High Sens Total Protein Albumin TSH Urine Color Urine Appearance Urine pH Ur Specific [place] Urine Protein Urine Glucose (UA) Urine Ketones Urine Blood Urine Nitrite Ur Leukocyte Esterase Urine RBC Urine WBC Urine WBC Clumps Ur Squamous Epith Cells Urine Bacteria Urine Mucus Urine Yeast Acetone, Qual COVID-19 (FE) COVID-19 Clin Com 10/25/21 10/25/21 10/25/21 12:29 12:29 12:29 MCV MCH MCHC RDW Plt Count MPV Immature Gran % (Auto) Neut % (Auto) Lymph % (Auto) [place] % (Auto) Eos % (Auto) Baso % (Auto) Lymph # (Auto) [place] # (Auto) Eos # (Auto) Baso # (Auto) Abs Immat Gran (auto) Absolute Neuts (auto) Absolute Nucleated RBC Nucleated RBC % (auto) PT INR APTT VBG pH VBG pCO2 VBG pO2 VBG HCO3 VBG O2 Saturation VBG Base Excess Anion Gap 12 Estim Creat Clear Calc 48.6 Estimated GFR > 60 POC Glucose Random Glucose 250 H Lactic Acid 2.7 H* Lactic Acid F/U @ 2Hr Calcium 9.5 Magnesium 1.8 Total Bilirubin 0.5 Direct Bilirubin 0.2 AST 10 ALT 15 Alkaline Phosphatase 73 Ammonia 29 Troponin I High Sens Total Protein 6.2 L Albumin 3.7 TSH Urine Color Urine Appearance Urine pH Ur Specific [place] Urine Protein Urine Glucose (UA) Urine Ketones Urine Blood Urine Nitrite Ur Leukocyte Esterase Urine RBC Urine WBC Urine WBC Clumps Ur Squamous Epith Cells Urine Bacteria Urine Mucus Urine Yeast Acetone, Qual COVID-19 (FE) COVID-19 Clin Com 10/25/21 10/25/21 10/25/21 12:29 12:29 12:29 MCV MCH MCHC RDW Plt Count MPV Immature Gran % (Auto) Neut % (Auto) Lymph % (Auto) [place] % (Auto) Eos % (Auto) Baso % (Auto) Lymph # (Auto) [place] # (Auto) Eos # (Auto) Baso # (Auto) Abs Immat Gran (auto) Absolute Neuts (auto) Absolute Nucleated RBC Nucleated RBC % (auto) PT INR APTT VBG pH VBG pCO2 VBG pO2 VBG HCO3 VBG O2 Saturation VBG Base Excess Anion Gap Estim Creat Clear Calc Estimated GFR POC Glucose Random Glucose Lactic Acid Lactic Acid F/U @ 2Hr Calcium Magnesium Total Bilirubin Direct Bilirubin AST ALT Alkaline Phosphatase Ammonia Troponin I High Sens 5.0 Total Protein Albumin TSH 1.38 Urine Color Urine Appearance Urine pH Ur Specific [place] Urine Protein Urine Glucose (UA) Urine Ketones Urine Blood Urine Nitrite Ur Leukocyte Esterase Urine RBC Urine WBC Urine WBC Clumps Ur Squamous Epith Cells Urine Bacteria Urine Mucus Urine Yeast Acetone, Qual Negative COVID-19 (FE) Negative COVID-19 Clin Com See Note 10/25/21 10/25/21 10/25/21 12:32 15:17 15:18 MCV MCH MCHC RDW Plt Count MPV Immature Gran % (Auto) Neut % (Auto) Lymph % (Auto) [place] % (Auto) Eos % (Auto) Baso % (Auto) Lymph # (Auto) [place] # (Auto) Eos # (Auto) Baso # (Auto) Abs Immat Gran (auto) Absolute Neuts (auto) Absolute Nucleated RBC Nucleated RBC % (auto) PT INR APTT VBG pH 7.48 H VBG pCO2 38 VBG pO2 55 VBG HCO3 29 H VBG O2 Saturation 85.0 VBG Base Excess 5.8 Anion Gap Estim Creat Clear Calc Estimated GFR POC Glucose Random Glucose Lactic Acid Lactic Acid F/U @ 2Hr 3.9 H* Calcium Magnesium Total Bilirubin Direct Bilirubin AST ALT Alkaline Phosphatase Ammonia Troponin I High Sens Total Protein Albumin TSH Urine Color YELLOW Urine Appearance HAZY Urine pH 5.5 Ur Specific [place] 1.010 Urine Protein NEG Urine Glucose (UA) >=1000 H Urine Ketones NEG Urine Blood NEG Urine Nitrite NEG Ur Leukocyte Esterase NEG Urine RBC 1-4 Urine WBC 10-14 H Urine WBC Clumps NOTED Ur Squamous Epith Cells 2+ Urine Bacteria TRACE Urine Mucus TRACE Urine Yeast 2+ Acetone, Qual COVID-19 (FE) COVID-19 Clin Com Imaging Radiologist's Impressions: Impressions Head CT 10/25/21 11:59 IMPRESSION: There are multiple anatomic features that indicate the likelihood of normal pressure hydrocephalus. Scattered chronic small vessel ischemic changes are also visualized within the periventricular white matter. No evidence of acute territorial infarct or hemorrhage. Chest X-Ray 10/25/21 12:01 IMPRESSION: Unremarkable chest examination. Assessment and Plan (1) Cognitive impairment: Status: Acute Plan 76-year-old woman admitted to the ER with failure to thrive, hyperglycemia, lactic acidosis. Lives alone and her son (Magnolia Medrano [phone]) stated that he is unable to care for her and has no other family to do so. He is her healthcare proxy however and is willing to assist in transition to other care. Hypokalemia. Likely secondary to dehydration Repleted Follow BMP Hyperglycemia with diabetes mellitus Likely secondary to noncompliance, patient unable to say when she last took her medications Sliding scale, ADA diet, continue Lantus Lactic acidosis. Likely secondary to dehydration Continue IV fluids Trend Dementia, failure to thrive Physical therapy consultation, will likely need long-term care placement DVT prophylaxis heparin Attending Dr. Holbrook Full code Will likely require 2 midnights as patient will need placement to rehab for possible long-term care placement inevitably, she does have some electrolyte abnormalities as well as hyperglycemia and will require a physical therapy consultation. Quality Stroke Does the patient have a stroke diagnosis?: No VTE Prior VTE?: No VTE Risk Level:: Medical - moderate - high VTE Device Contraindication: Treatment Not Indicated VTE Drug Contraindication: N/A - Med Ordered
[2021-10-25] MEDS: cefTRIAXone sodium 1 GM in 0.9 % Sodium Chloride 50 ML IV (16:13)
[2021-10-25 16:45] VITALS: BP 146/68; PULSE 64; RESP 16; O2SAT 99
[2021-10-25 17:28] LABS: Reflex Lactate? 2 Y
[2021-10-25] MEDS: Heparin Sodium,Porcine 5,000 UNIT/ML VIAL 5000 UNIT SUBCUT (17:39)
[2021-10-25 17:42] VITALS: BP 146/68; PULSE 67; RESP 12; O2SAT 99
[2021-10-25] MEDS: 0.9 % Sodium Chloride 1,000 ML 100 ML IVCONT (18:09)
[2021-10-25 18:16] LABS: ~Lactic Acid-LAB USE ONLY 1.9 mmol/L (0.5-2.0)
[2021-10-25] MEDS: Acetaminophen 325 MG TABLET 650 MG PO (20:52)
[2021-10-25 20:54] LABS: Glucose, Whole Blood 236 mg/dL (60-115)
[2021-10-25] MEDS: Insulin Lispro 100 UNIT/ML 3 ML VIAL SUBCUT (20:56)
[2021-10-25 21:38] VITALS: BP 144/59; PULSE 65; RESP 22; TEMP 37.2; O2SAT 95
--- NOTE | 2021-10-25 22:24 | MHC.CM.PN ---
CM met with admitted patient with bed assignment pending. Pt speaks Andorran. Alert to person and place. Unsure why she is here. States she lives alone. Could use help. Has cane. States son wants her to live in a long term. States it might be okay. Unsure if patient understands. CM spoke with HCP/son Magnolia Medrano ([phone]), who feels his mother is not safe at home, is not taking her medications and is confused at times. IMM reviewed and signed 10/25. Copy left at bedside with contact card. Magnolia states he cannot care for her at home, but would like a long term locally, so he can visit her. Pt is vaccinated x2, unsure of nursing services manager, and no booster. PT evaluation pending. According to Medical record, PCP tried to involve elder care, as he was concerned about her. D/C plan pending PT evaluation. STR with transition to LTC. Pt will need transportation home. Referrals placed locally. CM to follow for d/c needs.
[2021-10-26 01:37] VITALS: BP 149/58; PULSE 61; RESP 12; TEMP 36.4; O2SAT 95
[2021-10-26 05:32] VITALS: BP 127/67; PULSE 65; RESP 14; O2SAT 97
[2021-10-26] MEDS: 0.9 % Sodium Chloride 1,000 ML 100 ML IVCONT ×2 (05:32→17:14)
[2021-10-26] MEDS: Heparin Sodium,Porcine 5,000 UNIT/ML VIAL 5000 UNIT SUBCUT ×3 (05:43→17:31)
[2021-10-26 07:06] LABS: Glucose, Whole Blood 209 mg/dL (60-115)
[2021-10-26] MEDS: Insulin Lispro 100 UNIT/ML 3 ML VIAL SUBCUT ×3 (07:22→17:13)
[2021-10-26 07:56] LABS: MANUAL DIFF FLAG NO
[2021-10-26 08:05] LABS: Basophils Percent Auto 0.6 % (0-2); Eosinophils Absolute Auto 0.1 X10*3/uL (0.0-0.4); Eosinophils Percent Auto 2.1 % (0-4); Hematocrit 35.9 % (37.0-47.0); Hemoglobin 12.4 g/dl (12.0-16.0); Imm Gran Abs Auto 0.01 X10*3/uL (0.00-0.03); Imm Gran Pct Auto 0.3 % (0.0-0.4); Lymphocytes Absolute Auto 1.7 X10*3/uL (1.2-4.9); Lymphocytes Percent Auto 48.8 % (20-40); Mean Corpuscular HGB Conc 34.5 g/dl (31.0-35.0); Mean Corpuscular Hemoglobin 28.2 pg (27.0-33.0); Mean Corpuscular Volume 81.6 fL (80.0-98.0); Mean Platelet Volume 10.4 fL (9.4-12.3); Monocytes Absolute Auto 0.3 X10*3/uL (0.1-1.2); Monocytes Percent Auto 7.4 % (2-11); Neutrophils Absolute Auto 1.4 x10*3/uL (2.0-8.3); Neutrophils Percent Auto 40.8 % (45-73); Platelet Count 182 X10*3/uL (160-400); Red Cell Distribution Width 13.9 % (11.0-16.0); White Blood Count 3.4 X10*3/uL (4.8-10.8)
[2021-10-26 08:27] LABS: Magnesium 1.7 mg/dL (1.6-2.6)
--- NOTE | 2021-10-26 08:33 | MHC.CDI.CONC ---
CDI Concurrent Query Documentation Clarification: PHYSICIAN'S DOCUMENTATION REQUEST Date of Query: 10/26/21 0833 Patient Name: Rossy Tate Admit Date: 10/25/21 Dear Doctor, A review of the medical record indicates additional documentation may be needed. Please review below and update the documentation accordingly. Clinical Indicators: Risk Factors/Clinical Indicators/Treatments Dementia - patient not taking medication, lives alone, oriented to self only, unable to give history , electrolyte abnormalities, FTT, dehydration. ED - PCP has tried to involve elderly care services, confused with altered mental status. Based on the above, could you clarify in the Progress Notes which, if any of the following, is the most likely etiology of the confusion/altered mental status? Encephalopathy - indicate type such as metabolic, toxic, septic, alcoholic, hypertensive, etc. Dementia - indicate type of dementia, such as Alzheimer's, senile, vascular, Lewy body, etc. Baseline dementia - indicate type, such as Alzheimer's, senile, vascular, Lewy body, etc., and any associated behavioral disturbances (aggressive, combative, or violent behavior) Other etiology (please specify) Unable to determine Use of terms such as suspected, likely, concern for, or probable (associated with a specific diagnosis that is being evaluated, monitored, or treated as if it exists) are acceptable and can be coded in the inpatient setting, when documented at the time of discharge. Thank you, Loyda Vincent [facility], CDIS Extension: [phone] Please use your independent medical judgment in providing your response. THIS QUERY IS PART OF THE PERMANENT MEDICAL RECORD Other Diagnosis: unable to determine
[2021-10-26 08:38] LABS: Chloride 105 mmol/L (96-108)
[2021-10-26 08:39] LABS: Anion Gap 10 (12-20); Blood Urea Nitrogen 4 mg/dL (9-16); Calcium 8.8 mg/dL (8.4-10.2); Carbon Dioxide 26 mmol/L (22-29); Creatinine Clr Calc Pharmacy 58.1; Estimated Glomerular Filt Rate > 60; Glucose Random 252 mg/dL (60-115); Potassium 3.2 mmol/L (3.3-5.1); Sodium 138 mmol/L (135-145)
[2021-10-26] MEDS: Insulin Glargine,Hum.rec.anlog 100 UNIT/ML 10 ML VIAL SUBCUT (09:16)
--- NOTE | 2021-10-26 10:50 | P.CDIC_ITS ---
CDI Concurrent Query Documentation Clarification: PHYSICIAN'S DOCUMENTATION REQUEST Date of Query: 10/26/21 1051 Patient Name: Rossy Tate Admit Date: 10/25/21 Dear Doctor, A review of the medical record indicates additional documentation may be needed. Please review below and update the documentation accordingly. Clinical Indicators: Risk Factors/Clinical Indicators/Treatments Ed: Clinical impression - Acute UTI URINE: Hazy, nitrite neg, leukocyte neg, urine wbc 10-14 H, bacteria trace. IV Ceftriaxone. Please indicate in your progress notes if you are in agreement that the above diagnosis is valid for this patient: * Yes, [ ] is a valid diagnosis for this patient * No, [ ] is a not a valid diagnosis for this patient * Other (please specify) * Unable to determine Use of terms such as suspected, likely, concern for, or probable (associated with a specific diagnosis that is being evaluated, monitored, or treated as if it exists) are acceptable and can be coded in the inpatient setting, when documented at the time of discharge. Thank you, Loyda Vincent [facility], CDIS Extension: [phone] Please use your independent medical judgment in providing your response. THIS QUERY IS PART OF THE PERMANENT MEDICAL RECORD Other Diagnosis: No UTI
[2021-10-26 12:18] VITALS: BP 146/67; PULSE 61; RESP 17; O2SAT 96
[2021-10-26 12:49] LABS: Glucose, Whole Blood 194 mg/dL (60-115)
--- NOTE | 2021-10-26 12:57 | HO.PM.IMPN ---
Subjective Subjective Date of Service: 10/26/21 Review of Systems Follow up Hyperglycemia confused no pain Physical Exam Vital Signs: Vital Signs: Last Vital Signs Temp 97.5 F 10/26/21 01:37 Pulse 61 10/26/21 12:18 Resp 17 10/26/21 12:18 BP 146/67 H 10/26/21 12:18 Pulse Ox 96 10/26/21 12:18 BMI result Body Mass Index 18.2 Appearing in no acute distress lung sounds are clear to auscultation heart regular rate rhythm, clear S1, S2 positive bowel sounds, abdomen is soft, nontender neuro patient is alert, confused Objective Data Active Medications Acetaminophen (Acetaminophen 325 Mg Tablet) 650 mg PO Q6H PRN PRN Reason: Pain, Mild (Pain Scale 1-3) Last Admin: 10/25/21 20:52 Dose: 650 mg Documented by: CESAR Albuterol Sulfate (Albuterol Sulfate 90 Mcg 8 Gm Inhaler) 2 puff INHALE Q4H PRN PRN Reason: Shortness Of Breath Dextrose (Dextrose 50 % 25 Gm/50 Ml Vial) 25 gm IVPUSH Q15M PRN; Protocol PRN Reason: per Hypoglycemia Standing Ord. Glucose (Glucose Gel 15 Gm Gel..Gram.) 15 gm PO Q15M PRN; Protocol PRN Reason: per Hypoglycemia Standing Ord. Heparin Sodium (Porcine) (Heparin Sodium,Porcine 5,000 Unit/Ml Vial) 5,000 unit SUBCUT Q12H [facility] Last Admin: 10/26/21 05:43 Dose: 5,000 unit Documented by: CESAR Sodium Chloride (Ns) 1,000 mls @ 100 mls/hr IVCONT .Q10H [facility] Last Admin: 10/26/21 05:32 Dose: 100 mls/hr Documented by: CESAR Insulin Glargine (Insulin Glargine,Hum.Rec.Anlog 100 Unit/Ml 10 Ml Vial) 5 unit SUBCUT DAILY [facility] Last Admin: 10/26/21 09:16 Dose: 5 unit Documented by: SHAE Insulin Human Lispro (Insulin Lispro 100 Unit/Ml 3 Ml Vial) 0 unit SUBCUT QIDACHS [facility]; Protocol Last Admin: 10/26/21 07:22 Dose: 4 unit Documented by: SHAE Ondansetron HCl (Ondansetron Hcl 4 Mg/2 Ml Vial) 4 mg IVPUSH Q8H PRN PRN Reason: Nausea and Vomiting Pharmacy Consult (Consult Rx Perform Med Rec) 1 each MISCELLANE ONCE PRN PRN Reason: Consult order Sodium Chloride (0.9 % Sodium Chloride Flush 3 Ml Syringe) 3 ml IVFLUSH QSHIFT [facility] Last Admin: 10/26/21 08:08 Dose: Not Given Documented by: SHAE Non-Admin Reason: IV Running Labs CBC & Chem 7: 10/26/21 07:34 10/26/21 07:34 Labs: Laboratory Results - last 24 hr 10/25/21 10/25/21 10/25/21 12:29 12:29 12:29 MCV 79.0 L MCH 27.3 MCHC 34.5 RDW 13.4 Plt Count 229 MPV 10.5 Immature Gran % (Auto) 0.2 Neut % (Auto) 63.1 Lymph % (Auto) 29.6 [place] % (Auto) 5.9 Eos % (Auto) 0.8 Baso % (Auto) 0.4 Lymph # (Auto) 1.4 [place] # (Auto) 0.3 Eos # (Auto) 0.0 Baso # (Auto) 0.0 Abs Immat Gran (auto) 0.01 Absolute Neuts (auto) 3.0 Absolute Nucleated RBC 0.000 Nucleated RBC % (auto) 0.0 Anion Gap 12 Estim Creat Clear Calc 48.6 Estimated GFR > 60 POC Glucose Random Glucose 250 H Lactic Acid F/U @ 2Hr Lactic Acid F/U @ 4Hr Calcium 9.5 Magnesium 1.8 Total Bilirubin 0.5 Direct Bilirubin 0.2 AST 10 ALT 15 Alkaline Phosphatase 73 Troponin I High Sens Total Protein 6.2 L Albumin 3.7 TSH Urine Color Urine Appearance Urine pH Ur Specific [place] Urine Protein Urine Glucose (UA) Urine Ketones Urine Blood Urine Nitrite Ur Leukocyte Esterase Urine RBC Urine WBC Urine WBC Clumps Ur Squamous Epith Cells Urine Bacteria Urine Mucus Urine Yeast Acetone, Qual COVID-19 (FE) Negative COVID-19 Clin Com See Note 10/25/21 10/25/21 10/25/21 12:29 12:29 15:17 MCV MCH MCHC RDW Plt Count MPV Immature Gran % (Auto) Neut % (Auto) Lymph % (Auto) [place] % (Auto) Eos % (Auto) Baso % (Auto) Lymph # (Auto) [place] # (Auto) Eos # (Auto) Baso # (Auto) Abs Immat Gran (auto) Absolute Neuts (auto) Absolute Nucleated RBC Nucleated RBC % (auto) Anion Gap Estim Creat Clear Calc Estimated GFR POC Glucose Random Glucose Lactic Acid F/U @ 2Hr 3.9 H* Lactic Acid F/U @ 4Hr Calcium Magnesium Total Bilirubin Direct Bilirubin AST ALT Alkaline Phosphatase Troponin I High Sens 5.0 Total Protein Albumin TSH 1.38 Urine Color Urine Appearance Urine pH Ur Specific [place] Urine Protein Urine Glucose (UA) Urine Ketones Urine Blood Urine Nitrite Ur Leukocyte Esterase Urine RBC Urine WBC Urine WBC Clumps Ur Squamous Epith Cells Urine Bacteria Urine Mucus Urine Yeast Acetone, Qual Negative COVID-19 (FE) COVID-19 [employer] 10/25/21 10/25/21 10/25/21 15:18 17:47 20:50 MCV MCH MCHC RDW Plt Count MPV Immature Gran % (Auto) Neut % (Auto) Lymph % (Auto) [place] % (Auto) Eos % (Auto) Baso % (Auto) Lymph # (Auto) [place] # (Auto) Eos # (Auto) Baso # (Auto) Abs Immat Gran (auto) Absolute Neuts (auto) Absolute Nucleated RBC Nucleated RBC % (auto) Anion Gap Estim Creat Clear Calc Estimated GFR POC Glucose 236 H Random Glucose Lactic Acid F/U @ 2Hr Lactic Acid F/U @ 4Hr 1.9 Calcium Magnesium Total Bilirubin Direct Bilirubin AST ALT Alkaline Phosphatase Troponin I High Sens Total Protein Albumin TSH Urine Color YELLOW Urine Appearance HAZY Urine pH 5.5 Ur Specific [place] 1.010 Urine Protein NEG Urine Glucose (UA) >=1000 H Urine Ketones NEG Urine Blood NEG Urine Nitrite NEG Ur Leukocyte Esterase NEG Urine RBC 1-4 Urine WBC 10-14 H Urine WBC Clumps NOTED Ur Squamous Epith Cells 2+ Urine Bacteria TRACE Urine Mucus TRACE Urine Yeast 2+ Acetone, Qual COVID-19 (FE) COVID-19 [employer] 10/26/21 10/26/21 10/26/21 07:03 07:34 07:34 MCV 81.6 MCH 28.2 MCHC 34.5 RDW 13.9 Plt Count 182 MPV 10.4 Immature Gran % (Auto) 0.3 Neut % (Auto) 40.8 L Lymph % (Auto) 48.[address] % (Auto) 7.4 Eos % (Auto) 2.1 Baso % (Auto) 0.6 Lymph # (Auto) 1.7 [place] # (Auto) 0.3 Eos # (Auto) 0.1 Baso # (Auto) 0.0 Abs Immat Gran (auto) 0.01 Absolute Neuts (auto) 1.4 L Absolute Nucleated RBC 0.000 Nucleated RBC % (auto) 0.0 Anion Gap 10 L Estim Creat Clear Calc 58.1 Estimated GFR > 60 POC Glucose 209 H Random Glucose 252 H Lactic Acid F/U @ 2Hr Lactic Acid F/U @ 4Hr Calcium 8.8 D Magnesium Total Bilirubin Direct Bilirubin AST ALT Alkaline Phosphatase Troponin I High Sens Total Protein Albumin TSH Urine Color Urine Appearance Urine pH Ur Specific [place] Urine Protein Urine Glucose (UA) Urine Ketones Urine Blood Urine Nitrite Ur Leukocyte Esterase Urine RBC Urine WBC Urine WBC Clumps Ur Squamous Epith Cells Urine Bacteria Urine Mucus Urine Yeast Acetone, Qual COVID-19 (FE) [employer] 10/26/21 10/26/21 07:34 12:46 MCV MCH MCHC RDW Plt Count MPV Immature Gran % (Auto) Neut % (Auto) Lymph % (Auto) [place] % (Auto) Eos % (Auto) Baso % (Auto) Lymph # (Auto) [place] # (Auto) Eos # (Auto) Baso # (Auto) Abs Immat Gran (auto) Absolute Neuts (auto) Absolute Nucleated RBC Nucleated RBC % (auto) Anion Gap Estim Creat Clear Calc Estimated GFR POC Glucose 194 H Random Glucose Lactic Acid F/U @ 2Hr Lactic Acid F/U @ 4Hr Calcium Magnesium 1.7 Total Bilirubin Direct Bilirubin AST ALT Alkaline Phosphatase Troponin I High Sens Total Protein Albumin TSH Urine Color Urine Appearance Urine pH Ur Specific [place] Urine Protein Urine Glucose (UA) Urine Ketones Urine Blood Urine Nitrite Ur Leukocyte Esterase Urine RBC Urine WBC Urine WBC Clumps Ur Squamous Epith Cells Urine Bacteria Urine Mucus Urine Yeast Acetone, Qual COVID-19 (FE) COVID-v2 Ratings Microbiology Microbiology Results: Microbiology 10/25/21 15:18 Urine Culture - Final Urine clean catch - Urine ramos top Assessment and Plan (1) Confusion: Status: Acute (2) Pneumonia due to COVID-19 virus: Status: Acute Plan ?76-year-old woman admitted to the ER with failure to thrive, hyperglycemia, lactic acidosis.? Lives alone and her son (Magnolia Medrano [phone]) stated that he is unable to care for her and has no other family to do so.? He is her healthcare proxy however and is willing to assist in transition to other care. Hypokalemia.?Resolved Likely secondary to dehydration Repleted Follow BMP Hyperglycemia with diabetes mellitus Likely secondary to noncompliance, patient unable to say when she last took her medications Sliding scale, ADA diet, continue Lantus Lactic acidosis.?Resolved Likely secondary to dehydration Continue IV fluids Trend Dementia, failure to thrive Physical therapy consultation, will likely need long-term care placement DVT prophylaxis heparin Attending Dr. Unger Full code Dispo Plan for STR placement Quality Stroke Does the patient have a stroke diagnosis?: No VTE Prior VTE?: No VTE Risk Level:: Medical - moderate - high VTE Device Contraindication: Treatment Not Indicated VTE Drug Contraindication: N/A - Med Ordered
--- NOTE | 2021-10-26 13:16 | MHC.CM.PN ---
Addendum entered by Destini Payne 10/26/21 13:19: [facility] doesn't have any more female beds today. They can place patient in [place] and transfer to [place] when a bed becomes available. This is still the only facility offering a bed. Original Note: Patient remains in ER overflow. Physical therapy eval completed. No short term rehab is found to be needed. Patient has [employer]. [employer] typically has a m[facility]p benefit for short term placement. [facility] is the only facility that can offer a bed. Patient is ready for discharge today per TYRESE Elizabeth. T/W attempted to reach patient's son, Marcelo via telephone at [phone]. Left message requesting return telephone call. [place] has been asked to go for insurance auth at this time. Continue to monitor for d/c needs.
--- NOTE | 2021-10-26 13:23 | MHC.CM.PN ---
Received return telephone call from Marcelo. He is agreeable to placement at [facility] with patient being transferred to [place] when there is a bed available.
[2021-10-26] MEDS: Potassium Chloride ER 20 MEQ TAB.ER.PRT PO (13:30)
--- NOTE | 2021-10-26 15:30 | P.DS_ITS ---
DS: Providers Provider Date of Service: 10/26/21 Date of admission: 10/25/21 16:32 Primary care physician: Desmond Campbell MD Attending physician on discharge: Sameer Unger Discharging clinician: Clara Gabriel DS: Diagnosis Discharge Diagnosis (1) Confusion: Status: Acute (2) Pneumonia due to COVID-19 virus: Status: Acute DS: Summary Hospital Course Hospital Course: 76-year-old woman presenting to the ER after being seen at her primary care doctor's office and found to be hypertensive and hyperglycemic.? According to the patient's son Magnolia Medrano ([phone]), she has been staying with him for a few days because her freezer was not working.? She happened to have a PCP appointment and he brought her and they told him to bring her to the ER right away.? He told me that he believes that she has not been taking her medications properly at least over the last 2 months, she lives alone.? He states that he is unable to take care of her because he has a disabled son and the rest of the family is not interested and caring for her either.? The patient is oriented to self only and is unable to give any accurate historical information.? She was noted to have potassium of 2.7 and initial lactic acid of 2.7 with repeat of 3.9.? Blood sugar was 250 and she is on Lantus and metformin at home however he does not know if she is taking her medications.? Chest x-ray and head CT both negative for any acute abnormality.? In the ER she received a dose of potassium, Rocephin and 1 L of IV fluid.? Be admitted for further management of treatment of multiple electrolyte abnormalities, hyperglycemia and failure to thrive. Hypokalemia.?Resolved Likely secondary to dehydration Repleted Hyperglycemia with diabetes mellitus Likely secondary to noncompliance, patient unable to say when she last took her medications Sliding scale, ADA diet, continue Lantus Lactic acidosis.?Resolved Likely secondary to dehydration Treated with IV fluids Dementia, failure to thrive, chronic Plan for transfer to short-term rehab Time Spent with Patient Time attestation: Total time spent providing and/or coordinating discharge services: Discharge coordination time: Greater than 30 minutes Quality: Stroke Does the patient have a stroke diagnosis?: No Physical Exam Vital Signs: Vital Signs: Last Vital Signs Temp 97.5 F 10/26/21 01:37 Pulse 61 10/26/21 12:18 Resp 17 10/26/21 12:18 BP 146/67 H 10/26/21 12:18 Pulse Ox 96 10/26/21 12:18 BMI result Body Mass Index 18.2 Appearing in no acute distress head is normocephalic atraumatic eyes pupils are PERRLA sclera is anicteric mouth throat mucous membranes are intact and moist neck is supple no lymphadenopathy, no JVD noted lung sounds are clear to auscultation heart regular rate rhythm, clear S1, S2 positive bowel sounds, abdomen is soft, nontender neuro patient is alert, confused DS: Data Data Completed and Pending Labs on day of discharge: Laboratory Results - last 24 hr 10/25/21 10/25/21 10/25/21 15:17 15:18 17:47 WBC RBC Hgb Hct MCV MCH MCHC RDW Plt Count MPV Immature Gran % (Auto) Neut % (Auto) Lymph % (Auto) [place] % (Auto) Eos % (Auto) Baso % (Auto) Lymph # (Auto) [place] # (Auto) Eos # (Auto) Baso # (Auto) Abs Immat Gran (auto) Absolute Neuts (auto) Absolute Nucleated RBC Nucleated RBC % (auto) Sodium Potassium Chloride Carbon Dioxide Anion Gap BUN Creatinine Estim Creat Clear Calc Estimated GFR POC Glucose Random Glucose Lactic Acid F/U @ 2Hr 3.9 H* Lactic Acid F/U @ 4Hr 1.9 Calcium Magnesium Urine Color YELLOW Urine Appearance HAZY Urine pH 5.5 Ur Specific [place] 1.010 Urine Protein NEG Urine Glucose (UA) >=1000 H Urine Ketones NEG Urine Blood NEG Urine Nitrite NEG Ur Leukocyte Esterase NEG Urine RBC 1-4 Urine WBC 10-14 H Urine WBC Clumps NOTED Ur Squamous Epith Cells 2+ Urine Bacteria TRACE Urine Mucus TRACE Urine Yeast 2+ 10/25/21 10/26/21 10/26/21 20:50 07:03 07:34 WBC 3.4 L RBC 4.40 Hgb 12.4 Hct 35.9 L MCV 81.6 MCH 28.2 MCHC 34.5 RDW 13.9 Plt Count 182 MPV 10.4 Immature Gran % (Auto) 0.3 Neut % (Auto) 40.8 L Lymph % (Auto) 48.8 H [place] % (Auto) 7.4 Eos % (Auto) 2.1 Baso % (Auto) 0.6 Lymph # (Auto) 1.7 [place] # (Auto) 0.3 Eos # (Auto) 0.1 Baso # (Auto) 0.0 Abs Immat Gran (auto) 0.01 Absolute Neuts (auto) 1.4 L Absolute Nucleated RBC 0.000 Nucleated RBC % (auto) 0.0 Sodium Potassium Chloride Carbon Dioxide Anion Gap BUN Creatinine Estim Creat Clear Calc Estimated GFR POC Glucose 236 H 209 H Random Glucose Lactic Acid F/U @ 2Hr Lactic Acid F/U @ 4Hr Calcium Magnesium Urine Color Urine Appearance Urine pH Ur Specific [place] Urine Protein Urine Glucose (UA) Urine Ketones Urine Blood Urine Nitrite Ur Leukocyte Esterase Urine RBC Urine WBC Urine WBC Clumps Ur Squamous Epith Cells Urine Bacteria Urine Mucus Urine Yeast 10/26/21 10/26/21 10/26/21 07:34 07:34 12:46 WBC RBC Hgb Hct MCV MCH MCHC RDW Plt Count MPV Immature Gran % (Auto) Neut % (Auto) Lymph % (Auto) [place] % (Auto) Eos % (Auto) Baso % (Auto) Lymph # (Auto) [place] # (Auto) Eos # (Auto) Baso # (Auto) Abs Immat Gran (auto) Absolute Neuts (auto) Absolute Nucleated RBC Nucleated RBC % (auto) Sodium 138 Potassium 3.2 L Chloride 105 Carbon Dioxide 26 Anion Gap 10 L BUN 4 L Creatinine 0.57 Estim Creat Clear Calc 58.1 Estimated GFR > 60 POC Glucose 194 H Random Glucose 252 H Lactic Acid F/U @ 2Hr Lactic Acid F/U @ 4Hr Calcium 8.8 D Magnesium 1.7 Urine Color Urine Appearance Urine pH Ur Specific [place] Urine Protein Urine Glucose (UA) Urine Ketones Urine Blood Urine Nitrite Ur Leukocyte Esterase Urine RBC Urine WBC Urine WBC Clumps Ur Squamous Epith Cells Urine Bacteria Urine Mucus Urine Yeast Preliminary micro results at discharge 10/25/21 12:29 Blood Culture - Preliminary Blood - Venous No growth after 24 hours. 10/25/21 12:29 Blood Culture - Preliminary Blood - Venous No growth after 24 hours. Discharge Plan Discharge Anticipated Discharge Date/Time: 10/26/21 15:28 Patient Disposition: Xfer SNF Discharge Diagnosis: hypokalemia hyperglycemia [facility] Desmond Campbell MD [Primary Care Provider] - 1 Week Discharge Medications: Continued atorvastatin 40 mg Tablet 40 mg PO BEDTIME 0RF albuterol sulfate [Ventolin HFA] 90 mcg/actuation Hfa Aerosol Inhaler 1 - 2 puff INHALATION Q4H PRN (Reason: Shortness Of Breath) 0RF Lantus Solostar U-100 Insulin 100 unit/mL (3 mL) Insulin Pen 5 unit SUBCUT DAILY 0RF metformin 500 mg tablet extended release 24 hr 2 tab PO BIDWM 0RF Discharge Orders: Discharge Order (Routine); Ordered 10/26/21 Ordered By: Clara Gabriel Diet: advance to usual diet Activity on Discharge: As tolerated Stand Alone Forms: Patient Portal Discharge page Care Plan Goals: resolution of symptoms Health Concerns: hypokalemia hyperglycemia Plan of Treatment: follow-up with her primary care provider as needed Take all the medications as prescribed Assessment: See discharge summary
--- NOTE | 2021-10-26 15:31 | MHC.CM.PN ---
Insurance auth has been obtained by [facility]. Patient can leave at 6pm. [facility] booked. Med nec with chart. Patient, Minda Merida RN and Clara XIONG aware. Continue to monitor for d/c needs.
[2021-10-26 16:09] VITALS: BP 154/68; PULSE 85; TEMP 36.9; O2SAT 95
[2021-10-26 16:25] LABS: Glucose, Whole Blood 272 mg/dL (60-115)
== END 2021-10-27 00:55 | disposition skilled nursing facility (03) | DRG 638 ==
LOC: HO.ED 15:58 → HO.EDOVER 16:49
PROVIDERS: Admitting Provider Nurse Practitioner Acute Care; Emergency Provider Emergency Medicine; PCP Internal Medicine; Visit Provider Nurse Practitioner Acute Care
DX: E11.65 Type 2 diabetes mellitus with hyperglycemia (principal); E87.2 Acidosis; Z68.1 Body mass index [BMI] 19.9 or less, adult; I10 Essential (primary) hypertension; G31.84 Mild cognitive impairment of uncertain or unknown etiology; E86.0 Dehydration; R62.7 Adult failure to thrive; E87.6 Hypokalemia; F03.90 Unspecified dementia, unspecified severity, without behavioral disturbance, psychotic disturbance, mood disturbance, and anxiety; Z20.822 Contact with and (suspected) exposure to COVID-19; Z91.14 Patient's other noncompliance with medication regimen; Z88.0 Allergy status to penicillin; Z88.6 Allergy status to analgesic agent; Z79.4 Long term (current) use of insulin; Z79.84 Long term (current) use of oral hypoglycemic drugs; Z79.899 Other long term (current) drug therapy
CPT/HCPCS: 36415; 70450; 71045; 80048; 80076; 81001; 82009; 82140; 82803; 82947; 83605; 83735; 84443; 84484; 85025; 85610; 85730; 87040; 87086; 87635; 93005; 97161; 99285; J0696

== ENCOUNTER 2022-05-04 13:23 | Emergency (ER) | payer OTHER, SELFPAY ==
--- NOTE | ~2022-05-04 | XR_ITS ---
EXAMINATION: XR CHEST CLINICAL INFORMATION: Confusion COMPARISON: 10/25/2021 TECHNIQUE: Frontal view of the chest was obtained. FINDINGS: Cardiac leads overlie the chest. The lungs are well expanded. There is no focal consolidation, edema, or effusion. No pneumothorax. Mild bronchial wall thickening noted. The cardiomediastinal silhouette is within normal limits. No acute osseous abnormality. XR/XR chest 1V IMPRESSION: No dense consolidation. Bronchial wall thickening can be seen with a small airways process such as asthma or atypical/viral infection.
--- NOTE | ~2022-05-04 | CT_ITS ---
EXAMINATION: CT HEAD WITHOUT CONTRAST CLINICAL INFORMATION: Acute mental status change COMPARISON: Head CT 10/25/2021 TECHNIQUE: Imaging was performed from the skull base to vertex without intravenous administration of contrast. This CT examination was performed using dose optimization techniques as appropriate, variously including the following: *Automated exposure control *Adjustment of mA and/or kV according to patient size (this includes techniques or standardized protocols for targeted exams where dose is matched to indication/reason for exam; i.e. extremities or head) *Use of iterative reconstruction technique Total exam dose length product: 654 mGy-cm FINDINGS: No intra or extra-axial fluid collection, hemorrhage, or mass. No ventriculomegaly. No midline shift or herniation. Basal cisterns are patent. Mckinney-white matter differentiation is maintained. No territorial encephalomalacia. Moderate cerebral volume loss with prominent sulci. The ventricles are prominent in caliber with crowding of gyri at the vertex and narrowing of the callosal angle, findings can be seen in the setting of normal pressure hydrocephalus, unchanged. Patchy periventricular and deep white matter hypoattenuation is consistent with moderate small vessel ischemic changes. No calvarial fracture or soft tissue abnormality. The mastoid air cells and visualized portions of the paranasal sinuses are well aerated. CT/CT head/brain wo IV con IMPRESSION: 1. No acute intracranial pathology. 2. Redemonstrated findings that can be seen in the setting of normal pressure hydrocephalus. Correlate clinically. 3. Cerebral atrophy and chronic small vessel ischemic white matter change, similar to prior.
--- NOTE | ~2022-05-04 | CT_ITS ---
EXAMINATION: CT ABDOMEN AND PELVIS WITHOUT CONTRAST CLINICAL INFORMATION: Acute mental status change COMPARISON: CT abdomen and pelvis 08/02/2007 TECHNIQUE: Multidetector volumetric imaging was performed from the superior aspect of the liver through the pubic symphysis. Sagittal and coronal reformatted images were obtained on the technologist's workstation. This CT examination was performed using dose optimization techniques as appropriate, variously including the following: *Automated exposure control *Adjustment of mA and/or kV according to patient size (this includes techniques or standardized protocols for targeted exams where dose is matched to indication/reason for exam; i.e. extremities or head) *Use of iterative reconstruction technique DLP: 473 mGy-cm FINDINGS: LUNG BASES: Minimal hazy bibasilar atelectasis. LIVER, GALLBLADDER, AND BILIARY TREE: The liver is normal in size, shape, and attenuation. No focal hepatic lesion or biliary ductal dilatation is present. Small calcified gallstone at the neck. No gallbladder wall thickening or surrounding inflammatory change. PANCREAS: Unremarkable. SPLEEN: Unremarkable. ADRENAL GLANDS: Low-density thickening of the left adrenal gland consistent with hyperplasia or multiple small adenomas. Small 1 cm low-density right adrenal nodule. Findings are nonspecific significantly changed. KIDNEYS AND URETERS: The kidneys are normal in size, shape, and attenuation. No hydronephrosis, hydroureter, or calculi seen. No perinephric stranding. BLADDER: Unremarkable. GASTROINTESTINAL TRACT: Large amount of formed stool throughout the nondilated colon. No dilated bowel loops. No bowel wall thickening. Normal appendix. No ascites or free air. ABDOMINAL WALL: No significant hernia is appreciated. LYMPH NODES: No lymphadenopathy. VASCULAR: Normal caliber abdominal aorta. Mild vascular calcifications. PELVIC VISCERA: Fibroid uterus. 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 No suspicious osseous lesion. No acute fracture. Lower lumbar facet arthrosis. CT/CT abdomen pelvis wo IV con IMPRESSION: 1. No acute intra-abdominal process identified. 2. Cholelithiasis. 3. Large colonic stool burden. 4. Additional chronic ancillary findings, as above.
[2022-05-04 14:06] VITALS: BP 169/65; BP 211/79; PULSE 69; PULSE 97; RESP 16; TEMP 36.8; O2SAT 97; BMI 18.4
--- NOTE | 2022-05-04 15:04 | ED.GENADULT ---
HPI - General Adult General Chief complaint: General Medical <OLIVIA Edwards - Last Filed: 05/04/22 20:38> Stated complaint: failure to thrive <OLIVIA Edwards - Last Filed: 05/04/22 20:38> Time Seen by Provider: 05/04/22 15:02 <OLIVIA Edwards - Last Filed: 05/04/22 20:38> Source: patient and EMS <OLIVIA Edwards Last Filed: 05/04/22 20:38> Mode of arrival: EMS <OLIVIA Edwards Last Filed: 05/04/22 20:38> History of Present Illness HPI narrative: 76-year-old female with a past medical history of cognitive impairment, diabetes, hypertension, BIBA for medication noncompliance, diffuse abdominal pain, diarrhea, and unable to care for herself at home. History obtained from son due to patient's baseline mental status, states patient has been wandering into the street at night, has almost been hit by a car few times. Finding feces and urine all over her floor. Patient lives home alone, son states he checks on her once a week. <OLIVIA Edwards - Last Filed: 05/04/22 20:38> Onset (ago): unknown <OLIVIA Edwards - Last Filed: 05/04/22 20:38> Related Data Home medications: Home Medications Medication Instructions Recorded Confirmed albuterol sulfate 90 mcg/actuation 1 - 2 puff inhalation Q4H PRN 10/25/21 05/04/22 aerosol inhaler (Ventolin HFA) Shortness Of Breath atorvastatin 40 mg tablet 40 mg PO BEDTIME 10/25/21 10/25/21 insulin glargine 100 unit/mL (3 5 unit subcut DAILY 10/25/21 05/04/22 mL) subcutaneous pen (Lantus Solostar U-100 Insulin) metformin 500 mg tablet 1 tab PO DAILY 05/04/22 05/04/22 <OLIVIA Edwards Last Filed: 05/04/22 20:38> Allergies/adverse reactions: Allergies Allergy/AdvReac Type Severity Reaction Status Date / Time Penicillins [PENICILLINS] Allergy Unknown UNKNOWN Verified 10/26/21 00:16 aspirin Allergy Unknown Unknown Uncoded 10/25/21 11:39 PCN Allergy Unknown Unknown Uncoded 10/25/21 11:39 <OLIVIA Edwards - Last Filed: 05/04/22 20:38> Review of Systems Review of Systems: Gastrointestinal: + Diarrhea, No Constipation, + Abdominal pain RO was limited due to patient's mental status <OLIVIA Edwards - Last Filed: 05/04/22 20:38> Yes all other systems are reviewed and are negative <OLIVIA Edwards - Last Filed: 05/04/22 20:38> Constitutional: Constitutional: Reports as per HPI <OLIVIA Edwards - Last Filed: 05/04/22 20:38> FOR[facility]LY [facility] Past Medical History Attestation statement: The following information was validated with the patient. <OLIVIA Edwards - Last Filed: 05/04/22 20:38> Medical History: Medical History Cognitive impairment Cognitive impairment Confusion Diabetes type 2, uncontrolled Hypertension <OLIVIA Edwards - Last Filed: 05/04/22 20:38> Social History Social History: Social History Household Members: Other Household Members Other:: alone Housing: Apartment Do you presently have visiting nurse or other home services: No Alcohol intake: never Patient Tobacco Use Status: Never used Tobacco Advance Directives: Yes Advance Directives on File: Yes Advance Directives Date on File: 05/06/21 service: No Current occupational status: unemployed <OLIVIA Edwards - Last Filed: 05/04/22 20:38> Physical Exam ED Vital Signs: Vital Signs - 24 hr 05/04/22 14:06 05/04/22 16:02 05/04/22 18:50 Temperature 98.3 F Pulse Rate 69 66 65 Respiratory Rate 16 16 12 Blood Pressure 169/65 H 162/79 H 153/71 H Pulse Oximetry 97 98 98 Oxygen Delivery Method Room Air Room Air Room Air 05/04/22 20:21 Temperature 98.5 F Pulse Rate 74 Respiratory Rate 18 Blood Pressure 170/82 H Pulse Oximetry 97 Oxygen Delivery Method Room Air BMI result Body Mass Index 18.4 <OLIVIA Edwards Last Filed: 05/04/22 20:38> Vital Signs - 24 hr 05/04/22 14:06 05/04/22 16:02 05/04/22 18:50 Temperature 98.3 F Pulse Rate 69 66 65 Respiratory Rate 16 16 12 Blood Pressure 169/65 H 162/79 H 153/71 H Pulse Oximetry 97 98 98 Oxygen Delivery Method Room Air Room Air Room Air 05/04/22 20:21 Temperature 98.5 F Pulse Rate 74 Respiratory Rate 18 Blood Pressure 170/82 H Pulse Oximetry 97 Oxygen Delivery Method Room Air BMI result Body Mass Index 18.4 <OLIVIA Galvin - Last Filed: 05/04/22 23:09> Const General: cooperative and no acute distress <OLIVIA Edwards Last Filed: 05/04/22 20:38> Orientation/consciousness: oriented to person and oriented to place <OLIVIA Edwards Last Filed: 05/04/22 20:38> HENMT Head: Yes normal to inspection and Yes atraumatic <OLIVIA Edwards - Last Filed: 05/04/22 20:38> Ears: hearing grossly normal bilaterally <OLIVIA Edwards - Last Filed: 05/04/22 20:38> General nose exam: Normal external nose present <OLIVIA Edwards Last Filed: 05/04/22 20:38> Face and sinus: Yes normal facial exam <OLIVIA Edwards Last Filed: 05/04/22 20:38> Eyes General: appearance normal, both eyes and all related structures <OLIVIA Edwards Last Filed: 05/04/22 20:38> EOM: EOMs intact bilaterally <OLIVIA Edwards Last Filed: 05/04/22 20:38> Neck Neck: Yes normal visual inspection and Yes no meningeal signs <OLIVIA Edwards Last Filed: 05/04/22 20:38> Resp Effort & Inspection: normal respiratory effort and no respiratory distress <OLIVIA Edwards Last Filed: 05/04/22 20:38> Auscultation: clear to auscultation bilaterally, no crackles, no rales, no rhonchi and no wheezes <OLIVIA Edwards - Last Filed: 05/04/22 20:38> Cardio Rate: regular rate <OLIVIA Edwards Last Filed: 05/04/22 20:38> Heart sounds: S1 normal heart sound present and S2 normal heart sound present <OLIVIA Edwards - Last Filed: 05/04/22 20:38> GI Inspection: Yes normal to inspection <OLIVIA Edwards - Last Filed: 05/04/22 20:38> Palpation (GI): Soft to palpation, nontender, no guarding and not rigid <OLIVIA Edwards - Last Filed: 05/04/22 20:38> Skin Rashes: no rashes <OLIVIA Edwards Last Filed: 05/04/22 20:38> Wounds: no wounds <OLIVIA Edwards - Last Filed: 05/04/22 20:38> Neuro General: oriented to person, oriented to place, tone normal, moves all extremities, no meningeal signs, no focal motor deficits and CN's II-XI intact bilaterally <OLIVIA Edwards Last Filed: 05/04/22 20:38> Extrem General: Yes normal to inspection and Yes no pedal edema <OLIVIA Edwards Last Filed: 05/04/22 20:38> Course Course Course Narrative: -2617-- chronic leukopenia. Potassium low at 2.8 > 60 mEq p.o. and 20 mEq IV repletion ordered - initial troponin 5.1 >> will obtain [address] head/brain wo IV con IMPRESSION: 1. No acute intracranial pathology. 2. Redemonstrated findings that can be seen in the setting of normal pressure hydrocephalus. Correlate clinically. 3. Cerebral atrophy and chronic small vessel ischemic white matter change, similar to prior. ? > confusion ongoing x months, similar CT findings of NPH seen on prior CT's CT abdomen pelvis wo IV con IMPRESSION: 1. No acute intra-abdominal process identified. 2. Cholelithiasis. 3. Large colonic stool burden. 4. Additional chronic ancillary findings, as above. ? > Will give MiraLax/senna >> Patient had large BM while in the ED XR chest 1V IMPRESSION: No dense consolidation. Bronchial wall thickening can be seen with a small airways process such as asthma or atypical/viral infection. ? -2032-- repeat labs showing improvement of potassium from 2.8 to 3.6. Troponin without 50% rise, SD unlikely. Physician observation initiated at 20:36 is patient needs more time to be evaluated by PT/case management 2100--ED care transferred to OLIVIA Albrecht pending UA and PT/CM <OLIVIA Edwards Last Filed: 05/04/22 20:38> Reevaluation(s) Reevaluation #1: Patient's UA without infection. At this time patient will be placed into physician observation to allow more time to be evaluated by physical therapy, case management. At time observation was started patient common cooperative no acute distress. Will continue to monitor. Her vitals do show hypertension however patient has not received her home meds therefore a med reconciliation has been done at this time and she will receive her home blood pressure medications. <OLIVIA Galvin - Last Filed: 05/04/22 23:09> Time: 23:08 <OLIVIA Galvin - Last Filed: 05/04/22 23:09> Medical Decision Making MDM Narrative Medical decision making narrative: 76-year-old female with a past medical history of cognitive impairment, diabetes, hypertension, BIBA for medication noncompliance, diffuse abdominal pain, diarrhea, and unable to care for herself at home. on exam vital signs stable, NAD/nontoxic-appearing, A&O x2, abdomen soft non tender. SIERRA, no focal deficits. Concern for infectious/ metabolic etiology vs IC pathology vs encephalopathy vs progressive dementia/ cognitive impairment plan: EKG, labs, UA, CXR, head CT, admission vs PT/case management <OLIVIA Edwards - Last Filed: 05/04/22 20:38> Medical Records Medical records reviewed: Yes I reviewed the patient's medical records. <OLIVIA Edwards Last Filed: 05/04/22 20:38> Lab Data Lab results reviewed: Yes I reviewed the patient's lab results. <OLIVIA Edwards Last Filed: 05/04/22 20:38> Result diagrams: : 05/04/22 16:49 05/04/22 20:00 <OLIVIA Edwards - Last Filed: 05/04/22 20:38> Labs: Lab Results 05/04/22 05/04/22 05/04/22 Range/Units 16:49 16:49 16:49 WBC 4.0 L (4.8-10.8) X10*3/uL RBC 4.50 (4.20-5.50) X10*6/uL Hgb 12.5 (12.0-16.0) g/dl Hct 36.1 L (37.0-47.0) % MCV 80.2 (80.0-98.0) fL MCH 27.8 (27.0-33.0) pg MCHC 34.6 (31.0-35.0) g/dl RDW 12.8 (11.0-16.0) % Plt Count 183 (160-400) X10*3/uL MPV 9.9 (9.4-12.3) fL Immature Gran % (Auto) 0.3 (0.0-0.4) % Neut % (Auto) 51.2 (45-73) % Lymph % (Auto) 38.7 (20-40) % [place] % (Auto) 8.0 (2-11) % Eos % (Auto) 1.3 (0-4) % Baso % (Auto) 0.5 (0-2) % Lymph # (Auto) 1.5 (1.2-4.9) X10*3/uL [place] # (Auto) 0.3 (0.1-1.2) X10*3/uL Eos # (Auto) 0.1 (0.0-0.4) X10*3/uL Baso # (Auto) 0.0 (0.0-0.2) X10*3/uL Abs Immat Gran (auto) 0.01 (0.00-0.03) X10*3/uL Absolute Neuts (auto) 2.0 (2.0-8.3) x10*3/uL Absolute Nucleated RBC 0.000 (0.0-0.012) X10*3/uL Nucleated RBC % (auto) 0.0 (0.0-0.2) /100WBC PT (10.0-13.1) SEC INR (0.9-1.1) Sodium 140 (135-145) mmol/L Potassium 2.8 L (3.3-5.1) mmol/L Chloride 102 (96-108) mmol/L Carbon Dioxide 29 (22-29) mmol/L Anion Gap 12 (12-20) BUN 9 D (9-16) mg/dL Creatinine 0.62 (0.5-1.4) mg/dL Estim Creat Clear Calc 59.3 Estimated GFR > 60 Random Glucose 237 H (60-115) mg/dL Calcium 8.7 (8.4-10.2) mg/dL Magnesium 1.6 (1.6-2.6) mg/dL Total Bilirubin 0.7 (0.0-1.0) mg/dL Direct Bilirubin 0.3 (0.0-0.5) mg/dL AST 10 (5-31) U/L ALT 8 (0-31) U/L Alkaline Phosphatase 67 (39-117) U/L Ammonia 18 (13-55) umol/L Troponin I High Sens (<3.5-17.0) ng/L Total Protein 5.9 L (6.5-8.0) g/dL Albumin 3.6 (3.5-5.0) g/dL Lipase 15 (8-78) U/L COVID-19 (FE) (Negative) COVID-19 Clin Com 05/04/22 05/04/22 05/04/22 Range/Units 16:49 16:49 16:49 WBC (4.8-10.8) X10*3/uL RBC (4.20-5.50) X10*6/uL Hgb (12.0-16.0) g/dl Hct (37.0-47.0) % MCV (80.0-98.0) fL MCH (27.0-33.0) pg MCHC (31.0-35.0) g/dl RDW (11.0-16.0) % Plt Count (160-400) X10*3/uL MPV (9.4-12.3) fL Immature Gran % (Auto) (0.0-0.4) % Neut % (Auto) (45-73) % Lymph % (Auto) (20-40) % [place] % (Auto) (2-11) % Eos % (Auto) (0-4) % Baso % (Auto) (0-2) % Lymph # (Auto) (1.2-4.9) X10*3/uL [place] # (Auto) (0.1-1.2) X10*3/uL Eos # (Auto) (0.0-0.4) X10*3/uL Baso # (Auto) (0.0-0.2) X10*3/uL Abs Immat Gran (auto) (0.00-0.03) X10*3/uL Absolute Neuts (auto) (2.0-8.3) x10*3/uL Absolute Nucleated RBC (0.0-0.012) X10*3/uL Nucleated RBC % (auto) (0.0-0.2) /100WBC PT 11.7 (10.0-13.1) SEC INR 1.0 (0.9-1.1) Sodium (135-145) mmol/L Potassium (3.3-5.1) mmol/L Chloride (96-108) mmol/L Carbon Dioxide (22-29) mmol/L Anion Gap (12-20) BUN (9-16) mg/dL Creatinine (0.5-1.4) mg/dL Estim Creat Clear Calc Estimated GFR Random Glucose (60-115) mg/dL Calcium (8.4-10.2) mg/dL Magnesium (1.6-2.6) mg/dL Total Bilirubin (0.0-1.0) mg/dL Direct Bilirubin (0.0-0.5) mg/dL AST (5-31) U/L ALT (0-31) U/L Alkaline Phosphatase (39-117) U/L Ammonia (13-55) umol/L Troponin I High Sens 5.1 (<3.5-17.0) ng/L Total Protein (6.5-8.0) g/dL Albumin (3.5-5.0) g/dL Lipase (8-78) U/L COVID-19 (FE) Negative (Negative) COVID-19 Clin Com See Note 05/04/22 05/04/22 Range/Units 20:00 20:00 WBC (4.8-10.8) X10*3/uL RBC (4.20-5.50) X10*6/uL Hgb (12.0-16.0) g/dl Hct (37.0-47.0) % MCV (80.0-98.0) fL MCH (27.0-33.0) pg MCHC (31.0-35.0) g/dl RDW (11.0-16.0) % Plt Count (160-400) X10*3/uL MPV (9.4-12.3) fL Immature Gran % (Auto) (0.0-0.4) % Neut % (Auto) (45-73) % Lymph % (Auto) (20-40) % [place] % (Auto) (2-11) % Eos % (Auto) (0-4) % Baso % (Auto) (0-2) % Lymph # (Auto) (1.2-4.9) X10*3/uL [place] # (Auto) (0.1-1.2) X10*3/uL Eos # (Auto) (0.0-0.4) X10*3/uL Baso # (Auto) (0.0-0.2) X10*3/uL Abs Immat Gran (auto) (0.00-0.03) X10*3/uL Absolute Neuts (auto) (2.0-8.3) x10*3/uL Absolute Nucleated RBC (0.0-0.012) X10*3/uL Nucleated RBC % (auto) (0.0-0.2) /100WBC PT (10.0-13.1) SEC INR (0.9-1.1) Sodium 140 (135-145) mmol/L Potassium 3.6 D (3.3-5.1) mmol/L Chloride 102 (96-108) mmol/L Carbon Dioxide 28 (22-29) mmol/L Anion Gap 14 (12-20) BUN 7 L (9-16) mg/dL Creatinine 0.69 (0.5-1.4) mg/dL Estim Creat Clear Calc 53.3 Estimated GFR > 60 Random Glucose 241 H (60-115) mg/dL Calcium 9.8 D (8.4-10.2) mg/dL Magnesium (1.6-2.6) mg/dL Total Bilirubin (0.0-1.0) mg/dL Direct Bilirubin (0.0-0.5) mg/dL AST (5-31) U/L ALT (0-31) U/L Alkaline Phosphatase (39-117) U/L Ammonia (13-55) umol/L Troponin I High Sens 5.7 (<3.5-17.0) ng/L Total Protein (6.5-8.0) g/dL Albumin (3.5-5.0) g/dL Lipase (8-78) U/L COVID-19 (FE) (Negative) COVID-19 Clin Com <OLIVIA Edwards - Last Filed: 05/04/22 20:38> Lab Results 05/04/22 05/04/22 05/04/22 Range/Units 16:49 16:49 16:49 WBC 4.0 L (4.8-10.8) X10*3/uL RBC 4.50 (4.20-5.50) X10*6/uL Hgb 12.5 (12.0-16.0) g/dl Hct 36.1 L (37.0-47.0) % MCV 80.2 (80.0-98.0) fL MCH 27.8 (27.0-33.0) pg MCHC 34.6 (31.0-35.0) g/dl RDW 12.8 (11.0-16.0) % Plt Count 183 (160-400) X10*3/uL MPV 9.9 (9.4-12.3) fL Immature Gran % (Auto) 0.3 (0.0-0.4) % Neut % (Auto) 51.2 (45-73) % Lymph % (Auto) 38.7 (20-40) % [place] % (Auto) 8.0 (2-11) % Eos % (Auto) 1.3 (0-4) % Baso % (Auto) 0.5 (0-2) % Lymph # (Auto) 1.5 (1.2-4.9) X10*3/uL [place] # (Auto) 0.3 (0.1-1.2) X10*3/uL Eos # (Auto) 0.1 (0.0-0.4) X10*3/uL Baso # (Auto) 0.0 (0.0-0.2) X10*3/uL Abs Immat Gran (auto) 0.01 (0.00-0.03) X10*3/uL Absolute Neuts (auto) 2.0 (2.0-8.3) x10*3/uL Absolute Nucleated RBC 0.000 (0.0-0.012) X10*3/uL Nucleated RBC % (auto) 0.0 (0.0-0.2) /100WBC PT (10.0-13.1) SEC INR (0.9-1.1) Sodium 140 (135-145) mmol/L Potassium 2.8 L (3.3-5.1) mmol/L Chloride 102 (96-108) mmol/L Carbon Dioxide 29 (22-29) mmol/L Anion Gap 12 (12-20) BUN 9 D (9-16) mg/dL Creatinine 0.62 (0.5-1.4) mg/dL Estim Creat Clear Calc 59.3 Estimated GFR > 60 Random Glucose 237 H (60-115) mg/dL Calcium 8.7 (8.4-10.2) mg/dL Magnesium 1.6 (1.6-2.6) mg/dL Total Bilirubin 0.7 (0.0-1.0) mg/dL Direct Bilirubin 0.3 (0.0-0.5) mg/dL AST 10 (5-31) U/L ALT 8 (0-31) U/L Alkaline Phosphatase 67 (39-117) U/L Ammonia 18 (13-55) umol/L Troponin I High Sens (<3.5-17.0) ng/L Total Protein 5.9 L (6.5-8.0) g/dL Albumin 3.6 (3.5-5.0) g/dL Lipase 15 (8-78) U/L COVID-19 (FE) (Negative) COVID-19 Clin Com 05/04/22 05/04/22 05/04/22 Range/Units 16:49 16:49 16:49 WBC (4.8-10.8) X10*3/uL RBC (4.20-5.50) X10*6/uL Hgb (12.0-16.0) g/dl Hct (37.0-47.0) % MCV (80.0-98.0) fL MCH (27.0-33.0) pg MCHC (31.0-35.0) g/dl RDW (11.0-16.0) % Plt Count (160-400) X10*3/uL MPV (9.4-12.3) fL Immature Gran % (Auto) (0.0-0.4) % Neut % (Auto) (45-73) % Lymph % (Auto) (20-40) % [place] % (Auto) (2-11) % Eos % (Auto) (0-4) % Baso % (Auto) (0-2) % Lymph # (Auto) (1.2-4.9) X10*3/uL [place] # (Auto) (0.1-1.2) X10*3/uL Eos # (Auto) (0.0-0.4) X10*3/uL Baso # (Auto) (0.0-0.2) X10*3/uL Abs Immat Gran (auto) (0.00-0.03) X10*3/uL Absolute Neuts (auto) (2.0-8.3) x10*3/uL Absolute Nucleated RBC (0.0-0.012) X10*3/uL Nucleated RBC % (auto) (0.0-0.2) /100WBC PT 11.7 (10.0-13.1) SEC INR 1.0 (0.9-1.1) Sodium (135-145) mmol/L Potassium (3.3-5.1) mmol/L Chloride (96-108) mmol/L Carbon Dioxide (22-29) mmol/L Anion Gap (12-20) BUN (9-16) mg/dL Creatinine (0.5-1.4) mg/dL Estim Creat Clear Calc Estimated GFR Random Glucose (60-115) mg/dL Calcium (8.4-10.2) mg/dL Magnesium (1.6-2.6) mg/dL Total Bilirubin (0.0-1.0) mg/dL Direct Bilirubin (0.0-0.5) mg/dL AST (5-31) U/L ALT (0-31) U/L Alkaline Phosphatase (39-117) U/L Ammonia (13-55) umol/L Troponin I High Sens 5.1 (<3.5-17.0) ng/L Total Protein (6.5-8.0) g/dL Albumin (3.5-5.0) g/dL Lipase (8-78) U/L COVID-19 (FE) Negative (Negative) COVID-19 Clin Com See Note 05/04/22 05/04/22 Range/Units 20:00 20:00 WBC (4.8-10.8) X10*3/uL RBC (4.20-5.50) X10*6/uL Hgb (12.0-16.0) g/dl Hct (37.0-47.0) % MCV (80.0-98.0) fL MCH (27.0-33.0) pg MCHC (31.0-35.0) g/dl RDW (11.0-16.0) % Plt Count (160-400) X10*3/uL MPV (9.4-12.3) fL Immature Gran % (Auto) (0.0-0.4) % Neut % (Auto) (45-73) % Lymph % (Auto) (20-40) % [place] % (Auto) (2-11) % Eos % (Auto) (0-4) % Baso % (Auto) (0-2) % Lymph # (Auto) (1.2-4.9) X10*3/uL [place] # (Auto) (0.1-1.2) X10*3/uL Eos # (Auto) (0.0-0.4) X10*3/uL Baso # (Auto) (0.0-0.2) X10*3/uL Abs Immat Gran (auto) (0.00-0.03) X10*3/uL Absolute Neuts (auto) (2.0-8.3) x10*3/uL Absolute Nucleated RBC (0.0-0.012) X10*3/uL Nucleated RBC % (auto) (0.0-0.2) /100WBC PT (10.0-13.1) SEC INR (0.9-1.1) Sodium 140 (135-145) mmol/L Potassium 3.6 D (3.3-5.1) mmol/L Chloride 102 (96-108) mmol/L Carbon Dioxide 28 (22-29) mmol/L Anion Gap 14 (12-20) BUN 7 L (9-16) mg/dL Creatinine 0.69 (0.5-1.4) mg/dL Estim Creat Clear Calc 53.3 Estimated GFR > 60 Random Glucose 241 H (60-115) mg/dL Calcium 9.8 D (8.4-10.2) mg/dL Magnesium (1.6-2.6) mg/dL Total Bilirubin (0.0-1.0) mg/dL Direct Bilirubin (0.0-0.5) mg/dL AST (5-31) U/L ALT (0-31) U/L Alkaline Phosphatase (39-117) U/L Ammonia (13-55) umol/L Troponin I High Sens 5.7 (<3.5-17.0) ng/L Total Protein (6.5-8.0) g/dL Albumin (3.5-5.0) g/dL Lipase (8-78) U/L COVID-19 (FE) (Negative) COVID-19 Clin Com <OLIVIA Galvin - Last Filed: 05/04/22 23:09> ECG Data Attestation: I personally reviewed and interpreted this ECG as follows: <OLIVIA Edwards Last Filed: 05/04/22 20:38> Prior ECG tracings: available for review <OLIVIA Edwards Last Filed: 05/04/22 20:38> Interpretation: EKG normal sinus rhythm a rate of 66. Pr interval 122. No STEMI. Nonischemic. QTC 459 <OLIVIA Edwards Last Filed: 05/04/22 20:38> Discharge Plan Discharge Clinical Impression: Acute hypokalemia, Constipation, Adult failure to thrive <OLIVIA Edwards Last Filed: 05/04/22 20:38> Patient Disposition: Still a Patient <OLIVIA Edwards Last Filed: 05/04/22 20:38> Prescriptions: No Action atorvastatin 40 mg Tablet 40 mg PO BEDTIME albuterol sulfate [Ventolin HFA] 90 mcg/actuation Hfa Aerosol Inhaler 1 - 2 puff INHALATION Q4H PRN (Reason: Shortness Of Breath) insulin glargine [Lantus Solostar U-100 Insulin] 100 unit/mL (3 mL) Insulin Pen 5 unit SUBCUT DAILY metformin 500 mg tablet 1 tab PO DAILY <OLIVIA Edwards - Last Filed: 05/04/22 20:38>
--- NOTE | 2022-05-04 15:10 | PC.NURSE ---
Pt is Alert to self, knows , respiration is even, non-labored. Speak in clear and full sentences. Pupils are PERRLA. Lung sound is clear, heart sound regular, no edema noted. Skin is pink, warm and dry. Abdomen is soft, non-tender, bowel sounds present. Moves all extremities, uses walker to ambulate. Pt stated that she had abdominal pain , nausea x 1 day which now resolves, not sure the reason she in the ED. Stated son thought she was not feeling well .Denies pain ,light headedness, dizziness. No nausea, no vomiting. Pt resting comfortably, bed at lowest position, call ferrer within reach,pt aware of plan of care. Healthcare Applications Analyst at bedside.
--- NOTE | 2022-05-04 15:14 | PC.NURSE ---
PT'S SON JUAN ([phone]) CALLED [facility] AND SPOKE WITH THIS RN BRIEFLY AND GUERRERO ([facility]).
--- NOTE | 2022-05-04 15:18 | ECG_ITS ---
Test Reason : AMS Blood Pressure : / mmHG Vent. Rate : 066 BPM Atrial Rate : 066 BPM P-R Int : 122 ms QRS Dur : 076 ms QT Int : 438 ms P-R-T Axes : 056 014 027 degrees QTc Int : 459 ms Normal sinus rhythm Nonspecific T wave abnormality Abnormal ECG When compared with ECG of 25-OCT-2021 12:10, Nonspecific T wave abnormality, improved in Lateral leads QT has lengthened Referred By: Erum Proctor Electronically Signed By:JAMES VERONICA
[2022-05-04 16:02] VITALS: BP 162/79; PULSE 66; RESP 16; O2SAT 98
[2022-05-04] MEDS: 0.9 % Sodium Chloride 1,000 ML 999 ML IV (16:03)
[2022-05-04 16:55] LABS: MANUAL DIFF FLAG NO
[2022-05-04 16:58] LABS: Basophils Percent Auto 0.5 % (0-2); Eosinophils Absolute Auto 0.1 X10*3/uL (0.0-0.4); Eosinophils Percent Auto 1.3 % (0-4); Hematocrit 36.1 % (37.0-47.0); Hemoglobin 12.5 g/dl (12.0-16.0); Imm Gran Abs Auto 0.01 X10*3/uL (0.00-0.03); Imm Gran Pct Auto 0.3 % (0.0-0.4); Lymphocytes Absolute Auto 1.5 X10*3/uL (1.2-4.9); Lymphocytes Percent Auto 38.7 % (20-40); Mean Corpuscular HGB Conc 34.6 g/dl (31.0-35.0); Mean Corpuscular Hemoglobin 27.8 pg (27.0-33.0); Mean Corpuscular Volume 80.2 fL (80.0-98.0); Mean Platelet Volume 9.9 fL (9.4-12.3); Monocytes Absolute Auto 0.3 X10*3/uL (0.1-1.2); Neutrophils Percent Auto 51.2 % (45-73); Platelet Count 183 X10*3/uL (160-400); Red Cell Distribution Width 12.8 % (11.0-16.0)
[2022-05-04 17:02] LABS: Ammonia 18 umol/L (13-55)
[2022-05-04 17:08] LABS: Prothrombin Time 11.7 SEC (10.0-13.1)
[2022-05-04 17:17] LABS: Alanine Aminotransferase 8 U/L (0-31); Albumin Level 3.6 g/dL (3.5-5.0); Alkaline Phosphatase 67 U/L (39-117); Aspartate Amino Transferase 10 U/L (5-31); Bilirubin Direct 0.3 mg/dL (0.0-0.5); Bilirubin Total 0.7 mg/dL (0.0-1.0); Blood Urea Nitrogen 9 mg/dL (9-16); Calcium 8.7 mg/dL (8.4-10.2); Creatinine Clr Calc Pharmacy 59.3; Estimated Glomerular Filt Rate > 60; Glucose Random 237 mg/dL (60-115); Lipase 15 U/L (8-78); Magnesium 1.6 mg/dL (1.6-2.6); Total Protein 5.9 g/dL (6.5-8.0)
[2022-05-04 17:18] LABS: Troponin-I High Sensitivity 5.1 ng/L (<3.5-17.0)
[2022-05-04 17:23] LABS: COVID-19 Test Negative (Negative)
[2022-05-04 17:27] LABS: Anion Gap 12 (12-20); Carbon Dioxide 29 mmol/L (22-29); Chloride 102 mmol/L (96-108); Potassium 2.8 mmol/L (3.3-5.1); Sodium 140 mmol/L (135-145)
[2022-05-04 18:50] VITALS: BP 153/71; PULSE 65; RESP 12; O2SAT 98
[2022-05-04] MEDS: Potassium Chloride Packet 20 MEQ PACKET 60 MEQ PO (18:51)
[2022-05-04] MEDS: polyethylene glycoL 3350 17 GM POWD.PACK PO (18:52)
[2022-05-04] MEDS: Potassium Chloride/H20 10 MEQ/100 ML PIGGYBACK 100 MEQ IV ×2 (18:52→20:07)
[2022-05-04 20:21] VITALS: BP 170/82; PULSE 74; RESP 18; TEMP 36.9; O2SAT 97
[2022-05-04 20:22] LABS: Anion Gap 14 (12-20); Blood Urea Nitrogen 7 mg/dL (9-16); Calcium 9.8 mg/dL (8.4-10.2); Carbon Dioxide 28 mmol/L (22-29); Chloride 102 mmol/L (96-108); Creatinine Clr Calc Pharmacy 53.3; Estimated Glomerular Filt Rate > 60; Glucose Random 241 mg/dL (60-115); Potassium 3.6 mmol/L (3.3-5.1); Sodium 140 mmol/L (135-145)
--- NOTE | 2022-05-04 20:23 | PC.NURSE ---
Pt alert not oriented. Breaths are even and unlabored. NSR on monitor with HR 70. Incontinent care provided and assistance provided to the commode. Pt moved the bowels and voided. Bed changed. Will continue to monitor.
[2022-05-04 20:27] LABS: Troponin-I High Sensitivity 5.7 ng/L (<3.5-17.0)
--- NOTE | 2022-05-04 21:42 | PHA.MEDREC ---
PATIENT IS NOT COMPLIANT AND HAS NOT BEEN TAKING MEDICATIONS. PER FAMILY SHE IS SUPPOSED TO BE ON SOMETHING FOR BLOOD PRESSURE AND DIABETES, BUT MOST LIKELY HAS NOT BEEN TAKING ANYTHING Pharmacy Consult ? Medication Reconciliation Pharmacy has completed the medication reconciliation.
[2022-05-04 23:11] VITALS: BP 170/82; PULSE 64; RESP 20; O2SAT 98
--- NOTE | 2022-05-04 23:13 | PC.NURSE ---
Pt alert and oriented to person and place. Breaths are even and unlabored. NSR on monitor with HR 72. Reports no pain at this time. No apparent distress. Will continue to monitor.
[2022-05-05] VITALS (11 sets, daily range): BP systolic 116–207; BP diastolic 58–89; PULSE 60–79; RESP 12–20; TEMP 36.4–37.3; O2SAT 96–99
--- NOTE | 2022-05-05 00:58 | PC.NURSE ---
PT BOOSTED UP IN BED. BED PADS CHANGED AND PT GIVEN WARM BLANKETS
--- NOTE | 2022-05-05 02:25 | PC.NURSE ---
Pt is sleeping. Breaths are even and unlabored with equal chest rises. No apparent distress noted. Will continue to monitor.
--- NOTE | 2022-05-05 02:40 | PC.NURSE ---
Incontince care provided. Pt assisted to the commode.
[2022-05-05 02:48] LABS: Appearance Urine Clear; Color Urine Yellow; Glucose Urine UA >=1000 mg/dL (Negative); Leukocyte Esterase Urine Negative (Negative); Nitrite Urine Negative (Negative); PH 6.5 (5.0-9.0); Specific Gravity - Urine 1.025 (1.005-1.025); UMIC TRIGGER UACC YES; Urine Blood Negative (Negative); Urine Ketones Negative (Negative); Urine Protein Negative (Neg-Trace)
[2022-05-05 03:04] LABS: Bacteria Urine None Seen (None Seen); Hyaline Casts Urine 0-2 /LPF (0-2); RBC Urine 0-2 /HPF (0-2); Squamous Epithelial Cell Urine 0-2 /HPF (0-2); WBC Urine 0-5 /HPF (0-5)
[2022-05-05] MEDS: Acetaminophen 325 MG TABLET 650 MG PO (04:21)
--- NOTE | 2022-05-05 06:31 | PC.NURSE ---
Addendum entered by Pavithra Cuevas 05/05/22 06:32: PT GIVEN [facility] LINEN PAD CHANGED Original Note: PT GIVEN BED BATH AND LINEN CHANGED.
--- NOTE | 2022-05-05 14:08 | MHC.CM.ED ---
Patient remains in ER. [facility] is in the process of obtaining insurance auth. Patient has a history of dementia. However, has not been an elopement risk. Patient has not attempted to get out of bed alone. Continue to monitor for d/c needs.
--- NOTE | 2022-05-05 14:13 | MHC.CM.ED ---
Received case management consult overnight. Patient came to the ER due to FTT. Work up essentially negative. Physical therapy eval completed. Short term rehab is recommended. Spoke with patient's son/HCP, Matthew via telephone at [phone]. Patient has been to [facility] in the past. Yann would be agreeable to [place] if patient is agreeable. Met with patient and debone supervisor. Patient is a little confused but is agreeable to [facility]. Ann has been asked to go for insurance auth. Patient has received 2 [employer] vaccines. Continue to monitor for d/c needs.
--- NOTE | 2022-05-05 15:37 | PC.NURSE ---
spoke to pts nurse at the [facility], PCP wanted to stress wishes for pt to be placed into short or [facility] extermin[facility] rehab for safety of pt. This nurse updated the [facility] nurse on plan to send pt to [facility] if insurance auth goes through
--- NOTE | 2022-05-05 16:23 | PC.NURSE ---
Pt incontinent of urine, pt asked for bed graves and was able to void more. Full bed change, pt cleaned up, boosted and repositioned in bed @1610
[2022-05-05] MEDS: amLODIPine Besylate 5 MG TABLET PO (20:43)
[2022-05-06] VITALS (8 sets, daily range): BP systolic 164–200; BP diastolic 75–97; PULSE 69–94; RESP 16–20; TEMP 36.6–37.3; O2SAT 96–97
--- NOTE | 2022-05-06 01:51 | PC.NURSE ---
PT AMBULATED OUT OF BED TO STAND. PT LINEN CHANGED AND NEW PUREWICK APPLIED.
[2022-05-06] MEDS: Acetaminophen 325 MG TABLET 650 MG PO (01:58)
--- NOTE | 2022-05-06 01:59 | PC.NURSE ---
PT BLOOD PRESSURE 200s/90s. given 5mg amlodipine but no changes. MD aware of this. tylenol given for headache. Head CT done and resulted. will continue to monitor.
[2022-05-06 07:26] LABS: Glucose, Whole Blood 227 mg/dL (60-115)
[2022-05-06] MEDS: Insulin Glargine,Hum.rec.anlog 100 UNIT/ML 10 ML VIAL SUBCUT (09:00)
[2022-05-06] MEDS: metFORMIN HCl 500 MG TABLET PO (09:00)
--- NOTE | 2022-05-06 09:06 | PC.NURSE ---
Pt alert and oriented, respirations even and unlabored. Purewick in place. Ate all of breakfast, offers no complaints at this time. Pt pending case management placement at this time.
--- NOTE | 2022-05-06 14:12 | MHC.CM.ED ---
Review of EMR/notes/STR referrals: pt boarding in ED for STR placement: pt will need payor auth however, payor is closed for the long holiday weekend. Pt also w/hypertension: SBP >180. Message sent to provider re: tx vs possible admission. CM to follow for placement.
[2022-05-06] MEDS: Acetaminophen 325 MG TABLET 975 MG PO (14:28)
--- NOTE | 2022-05-06 14:35 | PC.NURSE ---
Pt alert, yemeni speaking. Ate 100% of breakfast and lunch. Incontinent of urine cleaned x 3 thus far, kayleen moves out of position. Tylenol given for c/o headache. BP remains elevated, Lib[facility] DYE TANK TENDER aware. Awaits dispo for SNF placement
--- NOTE | 2022-05-06 18:24 | PC.NURSE ---
pt incontinent of urine, pt cleaned and changed, complete bedding changed. pt ambulates to bathroom with x1 assist.
--- NOTE | 2022-05-06 22:59 | PC.NURSE ---
pt sleeping, RR even and unlabored.
[2022-05-07] VITALS (11 sets, daily range): BP systolic 150–208; BP diastolic 67–104; PULSE 72–99; RESP 14–16; TEMP 36.8–37.3; O2SAT 93–97
--- NOTE | 2022-05-07 00:11 | PC.NURSE ---
pt reporting headache, ambulated w one assist to bathroom.
[2022-05-07] MEDS: Acetaminophen 325 MG TABLET 650 MG PO (00:18)
--- NOTE | 2022-05-07 02:59 | PC.NURSE ---
pt hypertensive, per pharmacy list pt previously on amlodipine 5mg once daily for htn but has not be on medication consistently. provider notified.
[2022-05-07] MEDS: amLODIPine Besylate 5 MG TABLET PO ×2 (03:06→08:11)
[2022-05-07] MEDS: metFORMIN HCl 500 MG TABLET PO (08:11)
[2022-05-07] MEDS: Insulin Glargine,Hum.rec.anlog 100 UNIT/ML 10 ML VIAL SUBCUT (08:12)
--- NOTE | 2022-05-07 16:46 | MHC.CM.ED ---
Pt continues to board in ED awaiting payor auth for STR transfer: pt's BP is still uncontrolled: No plans by provider to admit for medical management. CM to follow.
[2022-05-07] MEDS: Insulin Lispro 100 UNIT/ML 3 ML VIAL SUBCUT (18:40)
[2022-05-08 00:33] VITALS: BP 180/89; PULSE 91; O2SAT 96
--- NOTE | 2022-05-08 00:47 | PC.NURSE ---
assumed care of pt at 1845, pt alert and oriented to person/place, pt remains hypertensive, other vss, cleaned and changed by tech, resting comfortably.
[2022-05-08 05:50] VITALS: BP 184/84; PULSE 68; O2SAT 95
[2022-05-08] MEDS: amLODIPine Besylate 5 MG TABLET PO (09:01)
[2022-05-08] MEDS: Insulin Glargine,Hum.rec.anlog 100 UNIT/ML 10 ML VIAL SUBCUT (09:01)
[2022-05-08 09:07] VITALS: BP 173/93; PULSE 77; RESP 18; O2SAT 94
[2022-05-08 09:10] LABS: Glucose, Whole Blood 299 mg/dL (60-115)
[2022-05-08] MEDS: metFORMIN HCl 500 MG TABLET PO (09:14)
--- NOTE | 2022-05-08 09:15 | PC.NURSE ---
Patient alert and oriented to person and situation. resting comfortably. reports no pain. she says her stomach hurts sometimes but reports no pain at the moment. bowel sounds hypoactive.
[2022-05-08 16:56] VITALS: BP 144/82; PULSE 93; RESP 16; TEMP 36.4; O2SAT 97
[2022-05-09 07:23] VITALS: BP 159/131; PULSE 80; RESP 13; TEMP 37.1; O2SAT 94
[2022-05-09 07:24] LABS: Glucose, Whole Blood 247 mg/dL (60-115)
[2022-05-09] MEDS: amLODIPine Besylate 5 MG TABLET PO (08:50)
[2022-05-09] MEDS: Insulin Glargine,Hum.rec.anlog 100 UNIT/ML 10 ML VIAL SUBCUT (08:51)
[2022-05-09] MEDS: metFORMIN HCl 500 MG TABLET PO (08:51)
[2022-05-09 09:49] VITALS: BP 182/87; PULSE 75; RESP 13; TEMP 36.7; O2SAT 93
[2022-05-09 11:19] LABS: COVID-19 Test Negative (Negative); IDNOW Serial# 55D5AD1C
[2022-05-09 12:18] VITALS: BP 180/86; PULSE 77; RESP 14; TEMP 37.1; O2SAT 96
--- NOTE | 2022-05-09 12:33 | MHC.CM.ED ---
Patient remains in ER. [facility] has obtained insurance auth. Repeat Covid swab is negative. Patient will transfer to [facility] via [facility] at 130pm. [facility] with chart. Patient, Ca Torres RN and Kendal BAKER aware. Continue to monitor for d/c needs.
--- NOTE | 2022-05-09 13:35 | PC.NURSE ---
PT GOING TO SNF, TODAY. AMB ONE ASSIST IN ROOM AND TO COMMODE. TOLERATING PO, TAKING MEDICATIONS EASILY
== END 2022-05-09 14:23 | disposition skilled nursing facility (03) ==
PROVIDERS: Physician Assistant; Physician Assistant Medical; Emergency Provider Student in an Organized Health Care Education/Training Program; PCP Internal Medicine
DX: K59.00 Constipation, unspecified (principal); E87.6 Hypokalemia; R62.7 Adult failure to thrive; Z68.1 Body mass index [BMI] 19.9 or less, adult; R51.9 Headache, unspecified; R10.9 Unspecified abdominal pain; G31.84 Mild cognitive impairment of uncertain or unknown etiology; E11.9 Type 2 diabetes mellitus without complications; I10 Essential (primary) hypertension; Z91.14 Patient's other noncompliance with medication regimen; Z20.822 Contact with and (suspected) exposure to COVID-19
CPT/HCPCS: 36415; 70450; 71045; 74176; 80048; 80076; 81001; 82140; 82947; 83690; 83735; 84484; 85025; 85610; 87635; 93005; 96361; 96365; 96366; 97162; 99285